=== PATIENT | male | born 1995 | race Native Hawaiian/Other Pacific Islander ===

== ENCOUNTER 2024-10-17 09:48 | Outpatient (REF) | payer SELFPAY ==
--- OUTSIDE RECORDS SUMMARY | 2024-10-17 09:45 | XMS_ITS | Encounter Summary ---
Author Organization [employer] Address [address] [place] [address] [place] [address] Care Team Providers Care Before And After School Daycare Worker Name Role Phone Unavailable Primary Care Provider Unavailabl e Reason for Visit * Reason Comments OBAT Encounter Details Date Type Department Care Team (Latest Contact Info) Description 10/17/2024 9:45 AM EDT Office Visit [facility] [address] [place], [place] [phone] Ame Weinberg MD [address] [place] [address] Opioid dependence, uncomplicated (CMS/HCC) (Primary Dx) Social History Tobacco Use Types Packs/Day Years Used Date Smoking Tobacco: Every Day Cigarettes Smokeless Tobacco: Never Alcohol Use Standard Drinks/Week Comments Not Currently 0 (1 standard drink = 0.6 oz pur e alcohol) Depression Answer Date Recorded Patient Health Questionnaire-9 Score 5 09/21/2024 Patient Health Questionnaire-9 Score 5 09/21/2024 Last PHQ-9: Questionnaire Data Not on file 0 09/21/2024 Housing Stability Answer Date Recorded What is your housing situation today? I have cristian rincon 09/18/[address] you li ve. Do you have problems with any of the following? None of the above 09/18/2024 Food Insecurity Answer Date Recorded Within the past 12 months, y ou worried that your food would run out before you got money to buy more: Never True 09/18/2024 Within the past 12 months,th e food you bought just didn't last and you didn't have enough money to get more: Never True 01/2025 Transportation Answer Date Recorded In the past 12 months, has l ack of transportation kept you from medical appts, meetings, work or from getting things needed for daily living? No 09/18/2024 Utilities Answer Date Recorded In the past 12 months, has t he electric, gas, oil or water company threatened to shut off services in your home? No 09/18/2024 Depression Answer Date Recorded Patient Health Questionnaire-2 Score 2 09/21/2024 Internet Access Answer Date Recorded Internet Access Q1 No 09/18/2024 Internet Access Q2 Not on file 09/18/2024 Sex and Gender Information Value Date Recorded Sex Assigned at Male 09/17/2024 11:11 AM EDT Legal Sex Male 10:45 AM EDT Gender Identity Male 09/17/2024 11:11 AM EDT Sexual Orientation Straight 09/17/2024 11 :11 AM EDT documented as of this encounter Progress Notes * Ame Weinberg MD - 10/17/2024 9:45 AM EDT Subjective Patient ID: Fredi Stone is a 28 y.o. male who presents for OBAT RV. HPI Patient on current buprenorphine (Sublocade) since 10/03/24. Previously on Suboxone dose of 24/6 mg.Patient has been in the program for 3 weeks. Provider intake: 09/18/24. LFTs: ordered 09/18/24. Patient actively enrolled in behavioral health services, therapist Sam, appointment 09/27/24. [facility] reviewed by provider. Last PCP appt: not assigned, requested. Smoking status 1/2-1 ppd 10/03/24 Buprenorphine (Sublocade) treatment history: Initial dose: 300 mg on 10/03/24 Last visit 10/10/24 Utox BUP only Fredi seen today for follow up for opioid use disorder. After initial pain from the injection, reports feeling very well on Sublocade with improved control of withdrawal symptoms and cravings. Reports the injection site is feeling fine now. Also seen at [facility] today. Still at [facility] program. Seeing therapist Sam 10/15/24. Still needs to do labs. Interim Hx: He attended OT on 10/10/24, and came to [facility] group on 10/12/24 and had integrated behavioral health service visit on 10/15/24. Today: 9/10/25 Utox: bup only Fredi did his lab before this appointment. Doing well. Pleased with buprenorphine (Sublocade). Wentto a movie yesterday. Talking with his mother everyday and with his 6-year-old daughter in [place]. He has a limited contact with his 3-year-old son in [place] due to his previous drug use, but his mother started allowing more time with his son as she sees him in recovery. He states he might goto the group after this appointment. Plan: Buprenorphine (Sublocade) dosing schedule of 300 mg q 28 days and management of side effects reviewed . Recovery support, harm reduction (including Narcan), and behavioral health attendance reviewed.Appointment for one week given. Patient expressed understanding and agreement with continuing plan of care. This information has been disclosed to you from records protected by federal confidentiality rules (42 CFR Part 2). The federal rules prohibit you from making any further disclosure of information inthis record that identifies a patient as having or having had a substance use disorder either directly, by reference to publicly available information, or through verification of such identification by another person unless further disclosure is expressly permitted by the written consent of the individual whose information is being disclosed or as otherwise permitted by (see2.3.1). The federal rules restrict any use of the information to investigate or prosecute with regard to a crime any patient with a substance use disorder, except as provided at 2.12??(5) and 2.65. Review of Systems Objective Physical Exam Office Visit on 10/17/2024 Component Date Value Ref Range Status THC 10/17/2024 Negative Negative Final Cocaine Screen, Urine 10/17/2024 Negative Negative Final Opiate Screen, Urine 10/17/2024 Negative Negative Final Methamphetamine Screen Urine 10/17/2024 Negative Negative Final Amphetamine Screen, Urine 10/17/2024 Negative Negative Final Benzodiazepines Screen, Urine 10/17/2024 Negative Negative Final Barbiturate Screen, Urine 10/17/2024 Negative Negative Final Methadone Screen, Urine 10/17/2024 Negative Negative Final Buprenophine Screen, Urine 10/17/2024 Positive (A) Negative Final TCA, Urine 10/17/2024 Negative Negative Final MDMA Urine 10/17/2024 Negative Negative ng/mL Final Oxycodone Screen, Urine 10/17/2024 Negative Negative Final Phencyclidine (PCP), Urine 10/17/2024 Negative Negative Final Fentanyl, Urine 10/17/2024 Negative Negative Final Assessment/Plan documented in this encounter Miscellaneous Notes * Assessment & Plan Note - Ame Weinberg MD - 10/17/2024 5:27 AM EDTAssociated Problem(s): Opioid dependence, uncomplicated (CMS/HCC) - stage of change: Action / Early remission - Utox review: neg opi - Overdose risk: high, decreased tolerance, mixed use, history of overdose - Continue current recovery support - Continue current recovery effort - Has been on buprenorphine / naloxone (Suboxone) 24/6 mg daily, transitioning to buprenorphine (Sublocade) today - Reviewed harm reduction and overdose prevention documented in this encounter Plan of Treatment Upcoming Encounters Date Type Department Care Team (Late st Contact Info) Description 10/24/2024 9:30 AM EDT Clinical Support [facility] [address] [place] [phone] Jez Beal, RN [address] [place] [address] documented as of this encounter Goals Goal Patient Goal Type Associated Problems Recent Progress Patient-Stated? Author Increase coping skills to promote long-term recovery and improve ability to perform daily activities General On track( 025 10:39 AM EDT) No Jez Beal, RN documented as of this encounter Procedures Procedure Name Priority Date/Time Associated Diagnosis Comments POCT MIKA-14 URINE DRUG SCREEN Routine 10/17/2024 10:18 AM EDT Opioid dependence, uncomplicated (CMS/HCC) documented in this encounter Results * (ABNORMAL) POCT MIKA-14 Urine Drug Screen (10/17/2024 10:18 AM EDT) THC Negative Negative Cocaine Screen, Urine Negative Negative Opiate Screen, Urine Negative Negative Methamphetamine Screen Urine Negative Negative Amphetamine Screen, Urine Negative Negative Benzodiazepines Screen, Urine Negative Negative Barbiturate Screen, Urine Negative Negative Methadone Screen, Urine Negative Negative Buprenophine Screen, Urine Positive(A) Negative TCA, Urine Negative Negative MDMA Urine Negative Negative ng/mL Oxycodone Screen, Urine Negative Negative Phencyclidine (PCP), Urine Negative Negative Fentanyl, Urine Negative Negative Urine Urine specimen obtained by clean catch procedure / Unknown 10/17/2024 10:18 AM EDT Ame Weinberg MD POINT OF CARE TEST ENTER/EDIT OR DERABLES Final Result documented in this encounter Visit Diagnoses Diagnosis Opioid dependence, uncomplicated (CMS/HCC)- Primary documented in this encounter Additional Health Concerns Assessment Noted Time PHQ-9 Depression Total Score: 5 09/22/19 25 3:06 PM EDT documented as of this encounter
--- OUTSIDE RECORDS SUMMARY | 2024-10-17 11:48 | XMS_ITS | Encounter Summary ---
Author Organization [employer] Address [address] [place] [address] 7 [place] [address] Care Team Providers Care Field Clinical Engineer Name Role Phone Unavailable Primary Care Provider Unavailabl e Encounter Details Date Type Department Care Team ([facility] st Contact Info) Description 09/26/2024 Orders Only [facility] [address] [place], [place] [phone] Ame Weinberg MD [address] [place], [place] [phone] Social History Tobacco Use Types Packs/Day Years [...] AM EDT documented as of this encounter Plan of Treatment Upcoming Encounters Date Type Department Care Team (Late st Contact Info) Description 10/24/2024 9:30 AM EDT Clinical Support [facility] [address] [place] [address] Jez Beal, RN [address] [place] [address] documented as of this encounter Goals Goal Patient Goal Type Associated Problems Recent Progress Patient-Stated? Author Increase coping skills to promote long-term recovery and improve ability to perform daily activities General On track( 025 10:39 AM EDT) No Jez Beal, RN documented as of this encounter Visit Diagnoses Not on filedocumented in this encounter Additional Health Concerns Assessment Noted Time PHQ-9 Depression Total Score: 5 09/22/19 25 3:06 PM EDT documented as of this encounter
--- OUTSIDE RECORDS SUMMARY | 2024-10-17 11:48 | XMS_ITS | Encounter Summary ---
Author Organization [employer] Address [address] [place] [address] 7 [place] [address] Care Team Providers Care Patient Svcs Mgr Name Role Phone Unavailable Primary Care Provider Unavailabl e Encounter Details Date Type Department Care Team (Latest Contact Info) Description 10/17/2024 Travel Social History Tobacco Use Types Packs/Day Years [...] Description 10/24/2024 9:30 AM EDT Clinical Support [facility] [address] [place] [address] Jez Beal, RN [address] [place] [address] documented as of this encounter Goals Goal [...]
--- OUTSIDE RECORDS SUMMARY | 2024-10-17 11:48 | XMS_ITS | Clinical Summary ---
Author Organization [employer] Address [address] [place] [address] 7 [place] [address] Care Team Providers Care Spool Cleaner Name Role Phone Unavailable Primary Care Provider Unavailabl e Allergies No known active allergies Medications * This document contains information received from the source organization and may not represent a complete record from that organization. naloxone (Narcan) 4 mg/0.1 mL nasal sprayIndications :Opioid dependence, uncomplicated (CMS/HCC) Administer 1 spray (4 mg) into affected nostril(s) if needed for opioid reversal. May repeat every 2-3 minutes if needed, alternating nostrils, until medical assistance becomes available. 2 each 025 2025 Active docusate sodium (Colace) 100 MG capsuleIndicatio ns:Opioid dependence, uncomplicated (CMS/HCC) Take 1 capsule (100 mg) by mouth if needed in the morning and at bedtime for constipation. 60 capsule 3 025 2025 Active senna (Senokot) 8.6 MG tablet Take 1 or 2 tablets by mouth at bedtime as needed for constipation 60 tablet 2 Active bisacodyl (Dulcolax) 5 MG EC tablet Take 1 tablet by mouth once a day if no bowel movement for 3 days. Do not crush, chew, or split. 30 tablet 2 Active buprenorphine ER (Sublocade) 300 mg/1.5mL injectionIndicat ions:Opioid dependence, uncomplicated (CMS/HCC) Inject 1.5 mL (1 each) under the skin every month to absorb continually. 1.5 mL 1 025 2024 Active mirtazapine (Remeron) 30 MG tablet Take 1 tablet (30 mg) by mouth at bedtime. 30 tablet 1 Active hydrOXYzine pamoate (Vistaril) 25 MG capsule Take 1 capsule by mouth a day as needed for anxiety or insomnia. May take additional 1 capsule a day. 60 capsule 1 Active Buprenorphine HCl-Naloxone HCl (Suboxone) 8-2 MG SL filmIndications: Opioid dependence, uncomplicated (CMS/HCC) Place 1 Film under the tongue 3 times daily for 9 days. 26 Film 025 2024 Discontinued(R eorder (will not trigger notification to Pharmacy)) Buprenorphine HCl-Naloxone HCl (Suboxone) 8-2 MG SL filmIndications: Opioid dependence, uncomplicated (CMS/HCC) Place 1 Film under the tongue 3 times daily for 7 days. 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 Rx sent. - resume hydroxyzine. Rx 25 mg, may take two if inadequate. - connected with integrated behavioral health service Anxiety 09/21/2024 Opioid dependence, uncomplicated 09/18/2024 Assessment & Plan (10/17/2024 5:27 AM EDT): - stage of change: Action / Early remission - Utox review: neg opi - Overdose risk: high, decreased tolerance, mixed use, history of overdose - Continue current recovery support - Continue current recovery effort - Has been on buprenorphine / naloxone (Suboxone) 24/6 mg daily, transitioning to buprenorphine (Sublocade) today - Reviewed harm reduction and overdose prevention Assessment & Plan (10/03/2024 11:57 AM EDT): - stage of change: Action / Early remission - Utox review: neg opi - Overdose risk: high, decreased tolerance, mixed use, history of overdose - Continue current recovery support - Continue current recovery effort - Has been on buprenorphine / naloxone (Suboxone) 24/6 mg daily, transitioning to buprenorphine (Sublocade) today - Reviewed harm reduction and overdose prevention Tobacco dependence 09/18/2024 Assessment & Plan (10/03/2024 11:53 AM EDT): - will discuss about smoking cessation option in near future Encounters * This document contains information received from the source organization and may not represent a complete record from that organization. Date Type Department Care Team Description 10/17/2024 9:45 AM EDT Office Visit [address] [address] Ame Weinberg MD Opioid dependence, uncomplicated ([facility]/HCC) (Primary Dx) 10/17/2024 Travel 10/15/2024 Patient Outreach [address] [address] Fritz Tucker Recovery Supports 10/12/2024 Patient Outreach [address] [address] Pranav De La Fuente Recovery Supports 10/10/2024 11:00 AM EDT Clinical Support [address] [address] Jez Beal RN Opioid dependence, uncomplicated ([facility]/HCC) (Primary Dx) 10/10/2024 9:00 AM EDT Office Visit [address] [address] Elias Garcia MD Opioid dependence, uncomplicated (CMS/HCC) (Primary Dx) 10/10/2024 Travel 10/05/2024 Patient Outreach [address] [address] Ermias Wilks Recovery Supports 10/03/2024 11:00 AM EDT Office Visit [address] [address] Ame Weinberg MD Opioid dependence, uncomplicated (CMS/HCC) (Primary Dx); Tobacco dependence; Anxiety; Mild episode of recurrent major depressive disorder (CMS/HCC) 10/03/2024 Travel 09/28/2024 Patient Outreach [address] [address] Ermias Wilks [facility] Supports 09/28/[address] [address] Roxann Mckeon RN 09/27/2024 1:00 PM EDT Clinical Support [address] [address] Jez Beal RN Opioid dependence, uncomplicated (CMS/HCC) (Primary Dx) 09/27/2024 Travel 09/26/2024 11:15 AM EDT Clinical Support [address] [address] Jez Beal RN Opioid dependence, uncomplicated (CMS/HCC) (Primary Dx) 09/26/[address] [address] Jez Beal RN Opioid dependence, uncomplicated (CMS/HCC) (Primary Dx) 09/26/[address] [address] Jez Beal, MARTHA New PCP appointment request 09/26/2024 Orders Only [address] [address] Ame Weinberg MD 09/26/2024 Patient Outreach [address] [address] Sunday Lopez [facility] Supp[facility] 09/26/2024 Travel 09/24/2024 Patient Outreach [address] [address] Fritz Tucker [facility] Recovery Supports 09/21/2024 Patient Outreach [address] [phone] Sunday Lopez [facility] Recovery Supports 09/19/2024 9:00 AM EDT Office Visit [address] [phone] Elias Garcia MD Opioid dependence, uncomplicated (CMS/HCC) (Primary Dx) 09/19/2024 Refill [facility] [address] [place] [address] Jez Beal RN Opioid dependence, uncomplicated (CMS/HCC) 09/19/2024 Travel 09/18/2024 1:30 PM EDT Office Visit [facility] [address] [place] [address] Cash Guillen MD Opioid dependence, uncomplicated (CMS/HCC) (Primary Dx); Tobacco dependence 09/18/2024 Patient Outreach [facility] [address] [place] [address] Leroy Low [facility] Recovery Supports 09/18/2024 Patient Outreach [facility] [address] [place] [address] Pranav De La Fuente Recovery Supports 09/18/2024 Refill [facility] [address] [place] [address] Roxann Mckeon RN Opioid dependence, uncomplicated ([facility]/HCC) (Primary Dx) 09/18/2024 Travel 09/17/2024 11:00 AM EDT Office Visit [facility] [address] [place] [address] Roxann Mckeon RN Uncomplicated opioid dependence (CMS/HCC) 09/17/2024 Patient Outreach [facility] [address] [place] [address] Fritz Tucker [facility] Recovery Supports 09/17/2024 Patient Outreach [facility] [address] [place] [address] Ermias Wilks [facility] Recovery Supports 09/17/2024 Travel from Last 3 Months Social History Tobacco Use Types Packs/Day Years [...] Orientation Straight 09/17/2024 11 :11 AM EDT Last Filed Vital Signs Vital Sign Reading Time Taken Comments Blood Pressure 108/70 09/18/2024 1:55 PM EDT Pulse 89 09/18/2024 1:55 PM EDT Temperature 36.9 C (98.4 F) 09/18/2024 1:55 PM EDT Respiratory Rate - - Oxygen Saturation 98% 09/18/2024 2:24 PM EDT Inhaled Oxygen Concentration - - Weight - - Height - - Body Mass Index - - Plan of Treatment Upcoming Encounters Date Type Department Care Team (Late st Contact Info) Description 10/24/2024 9:30 AM EDT Clinical Support [facility] [address] [place] [address] Jez Beal, RN [address] [place] [address] Health Maintenance Due Date Last Done Comments HIV Screening 1996 Lipid Panel 1996 Disability Screening 1996 Family Planning (PISQ) 11/10/2011 HPV Vaccines (1 - Male 3-dos e series) 11/10/2011 Hepatitis C Screening 2014 DTaP/Tdap/Td Vaccines (1 - Tdap) 11/10/2015 Hepatitis B Vaccines (1 of 3 - 19+ 3-dose series) 11/10/2015 Pneumococcal Vaccine: Pediatrics (0 to 5 Years) and At-Risk Patients (6 to 49) Years (1 of 2 - PCV) 11/10/2015 COVID-19 Vaccine (1 - 2023-2 5 season) 2024 Influenza Vaccine (#1) 2024 Alcohol/Substance Use Screening 09/18/2025 09/18/2024 SDOH Screening 09/18/2025 09/18/2024 Depression Screening 09/21/2025 09/21/2024, 09/21/2024 Tobacco Screening 10/17/2025 10/17/2024 Zoster Vaccines (1 of 2) 2046 RSV Patients and Patients Aged 60 years or older (1 - 1-dose 75+ series) 11/10/2071 HIB Vaccines Aged Out No longer eligi ble based on patient's age to complete this topic Hepatitis A Vaccines Aged Out No long er eligible based on patient's age to complete this topic IPV Vaccines Aged Out No longer eligi ble based on patient's age to complete this topic Meningococcal B Vaccine Aged Out No l onger eligible based on patient's age to complete this topic Meningococcal Vaccine Aged Out No bernice alex eligible based on patient's age to complete this topic RSV under 20 months Aged Out No longe r eligible based on patient's age to complete this topic Rotavirus Vaccines Aged Out No longer eligible based on patient's age to complete this topic Goals Goal Patient Goal Type Associated Problems Recent Progress Patient-Stated? Author Increase coping skills to promote long-term recovery and improve ability to perform daily activities General On track( 025 10:39 AM EDT) No Jez Beal, cashier clerk Procedure Name Priority Date/Time Associated Diagnosis Comments POCT MIKA-14 URINE DRUG SCREEN Routine 10/17/2024 10:18 AM EDT Opioid dependence, uncomplicated (CMS/HCC) POCT MIKA-14 URINE DRUG SCREEN Routine 10/10/2024 11:23 AM EDT Opioid dependence, uncomplicated (CMS/HCC) POCT MIKA-14 URINE DRUG SCREEN Routine 10/03/2024 11:41 AM EDT Opioid dependence, uncomplicated (CMS/HCC) POCT MIKA-14 URINE DRUG SCREEN Routine 09/27/2024 2:33 PM EDT Opioid dependence, uncomplicated (CMS/HCC) POCT MIKA-14 URINE DRUG SCREEN Routine 09/26/2024 11:45 AM EDT Opioid dependence, uncomplicated (CMS/HCC) POCT MIKA-14 URINE DRUG SCREEN Routine 09/18/2024 2:09 PM EDT Opioid dependence, uncomplicated (CMS/HCC) from Last 3 Months Results * (ABNORMAL) POCT MIKA-14 Urine Drug Screen (10/17/2024 10:18 AM EDT) Only the most recent of6 resultswithin the time period is included. THC Negative Negative Cocaine Screen, Urine Negative [...] CARE TEST ENTER/EDIT OR DERABLES Final Result from Last 3 Months Insurance [employer] HSN FULL
--- OUTSIDE RECORDS SUMMARY | 2024-10-17 11:48 | XMS_ITS | Encounter Summary ---
Author Organization [employer] Address [address] [place] [address] 7 [place] [address] Care Team Providers Care Technical Sales Associate Name Role Phone Unavailable Primary Care Provider Unavailabl e Reason for Visit * Reason Comments [facility] Recovery Supports Encounter Details Date Type Department Care Team ([facility] st Contact Info) Description 10/15/2024 Patient Outreach [facility] [address] [place] [address] Fritz Tucker Recovery Supports Social History Tobacco Use Types Packs/Day Years [...] as of this encounter Progress Notes * Fritz Tucker - 10/15/2024 3:09 PM EDT I met with Fredi today. Setting: in person at [facility] Recovery Wellness Goals worked on: Social Stability Action taken/next steps: Attended alcohol and drug free activity Additional comments: Fritz Tucker documented in this encounter Plan of Treatment Upcoming Encounters Date Type Department Care Team (Late st Contact Info) Description 10/24/2024 9:30 AM EDT Clinical Support [facility] [address] [place] [address] Jez Beal, RN [address] [place] [phone] documented as of this encounter Goals Goal [...]
--- OUTSIDE RECORDS SUMMARY | 2024-10-17 11:48 | XMS_ITS | Encounter Summary ---
Author Organization [employer] Address [address] [place] [address] 7 [place] [address] Care Team Providers Care Internal Recruiter Name Role Phone Unavailable Primary Care Provider Unavailabl e Reason for Visit * Reason Comments [facility] Recovery Supports Encounter Details Date Type Department Care Team ([facility] st Contact Info) Description 10/12/2024 Patient Outreach [facility] [address] [place] [address] Pranav De La Fuente Recovery Supports Social History Tobacco Use Types [...] as of this encounter Progress Notes * Pranav De La Fuente - 10/12/2024 2:07 PM EDT I met with Fredi today. Setting: in person at [facility] Recovery Wellness Goals worked on: Social Stability Action taken/next steps: Attended alcohol and drug free activity Additional comments: Pranav De La Fuente documented in this encounter Plan of Treatment Upcoming Encounters Date Type Department Care Team (Late st Contact Info) Description 10/24/2024 9:30 AM EDT Clinical Support [facility] [address] [place] [phone] Jez Beal, RN [address] [place] [phone] documented as of this encounter Goals Goal [...]
[2024-10-17 12:53] LABS: Alanine Aminotransferase 89 U/L (0-40); Albumin Level 4.4 g/dL (3.5-5.0); Alkaline Phosphatase 78 U/L (39-117); Aspartate Amino Transferase 34 U/L (5-37); Total Protein 7.8 g/dL (6.5-8.0)
[2024-10-17 13:20] LABS: HBS Num1 0.66 mIU/mL (0-7.99); HBc Num1 0.10 S/CO (0.00-0.79); HBsAGNum1 0.47 S/CO (0.00-0.99); HIV Num 1 0.06 S/CO (0.00-0.99); Hepatitis B Surface Antigen Negative (Negative); ~HepC Num1 12.99 S/CO (0.00-0.79); ~Hepatitis B Surface Antibody NONREACTIVE (Nonreactive); ~Hepatitis C Antibody Reactive (Nonreactive)
[2024-10-19 08:17] LABS: ~Hepatitis A Antibody IgG 9.89 S/CO (0.00-0.99)
[2024-10-20 03:48] LABS: TS Negative Control Passed; TS Panel A 0; TS Panel B 0; TS Positive Control Passed; TSpotTB Negative (Negative)
[2024-10-21 15:08] LABS: HCV Log PCR 2.46 Log IU/mL (NOT DETECTED); HepC Viral Load 288 IU/mL (NOT DETECTED)
== END 2024-10-17 09:49 | disposition home or self-care (01) ==
LOC: HO.HHCL 09:48
PROVIDERS: PCP Family Medicine; Visit Provider Emergency Medicine
DX: Z11.3 Encounter for screening for infections with a predominantly sexual mode of transmission (principal); Z11.4 Encounter for screening for human immunodeficiency virus [HIV]; Z11.59 Encounter for screening for other viral diseases; Z11.1 Encounter for screening for respiratory tuberculosis; F11.20 Opioid dependence, uncomplicated
CPT/HCPCS: 36415; 80076; 86481; 86592; 86704; 86706; 86708; 86803; 87340; 87389; 87522

== ENCOUNTER 2024-10-26 11:25 | Outpatient (REF) | payer MEDICAID, SELFPAY ==
--- OUTSIDE RECORDS SUMMARY | 2024-10-26 11:30 | XMS_ITS | Encounter Summary ---
Author Organization [employer] Address [address] [place] [address] 7 [place] [address] Care Team Providers Care Apartment Maintenance Name Role Phone Unavailable Primary Care Provider Unavailabl e Reason for Visit * Reason Comments OBAT Hepatitis C Encounter Details Date Type Department Care Team (Latest Contact Info) Description 10/26/2024 11:30 AM EDT Clinical Support [facility] [address] [place] [address] Jez Beal, RN [address] [place] [address] Opioid dependence, uncomplicated (CMS/HCC); Encounter for immunization Social History Tobacco Use Types Packs/Day Years [...] as of this encounter Progress Notes * Jez Beal RN - 10/26/2024 11:30 AM EDT Fredi Stnoe is a 28 y.o. male who presents for OBAT RV. Patient on current buprenorphine (Sublocade) since 10/03/24. Previously on Suboxone dose of 24/6 mg.Patient has been in the program for 4 weeks. Provider intake: 09/18/24. LFTs: done 10/17/24. Patient actively enrolled in behavioral health services, therapist Sam, appointment 09/27/24. [facility] reviewed by provider. PCP: [facility] appointment with UZMA Ramirez 11/21/24. Smoking status 1/2-1 ppd 10/03/24. Buprenorphine (Sublocade) treatment history: Initial dose: 300 mg on 10/03/24 Hep B: not immune 10/17/24. Received first Heplisav-B 10/26/24. Due for dose #2 on or after 11/23/24. Hepatitis C: Hep C ab positive, HCV RNA 288 on 10/17/24 Discussed treatment process and pt and to go to lab 10/26/24 Reports he was treated by his aunt, who is a doctor, [place] ago but does not remember the name of the medication. He will ask her. Last visit 10/17/24 Utox: bup only Fredi did his lab before this appointment. Doing well. Pleased with buprenorphine (Sublocade). Wentto a movie yesterday. Talking with his mother everyday and with [place] 6-year-old daughter in [place]. He has a limited contact with his 3-year-old son in [place] due to his previous drug use, but his mother started allowing more time with his son as she sees him in recovery. He states he might goto the group after this appointment. Today 10/26/24 Utox not collected today Fredi seen today for follow up for opioid use disorder. Reports doing well, still living in [facility]. Due for Sublocade next week and is feeling fine with no cravings or withdrawal symptoms. Discussed lab work as above, given Heplisav-B #1 and discussed Hep C viral load, treatment options, and pt to go to lab today. Plan: Buprenorphine (Sublocade) dosing schedule of 300 [...] except as provided at 2.12??(5) and 2.65. documented in this encounter Plan of Treatment Upcoming Encounters Date Type Department Care Team (Late st Contact Info) Description 10/31/2024 11:00 AM EDT Office Visit [facility] [address] [place], [place] [phone] Ame Weinberg MD [address] [place], [place] [phone] 11/07/2024 11:00 AM EDT Clinical Support [address] [address] Jez Beal, RN [address] [place] [address] 11/21/2024 9:00 AM EDT Office Visit [address] [address] Tamra Donovan FNP [address] [place] [address] documented as of this encounter Goals Goal Patient Goal Type Associated Problems Recent Progress Patient-Stated? Author Increase coping skills to promote long-term recovery and improve ability to perform daily activities General On track( 025 11:35 AM EDT) No Jez Beal, RN documented as of this encounter Visit Diagnoses Diagnosis Opioid dependence, uncomplicated ([facility]) Encounter for immunization documented in this encounter Additional Health Concerns Assessment Noted Time PHQ-9 Depression Total Score: 5 09/22/19 25 3:06 PM EDT documented as of this encounter
--- OUTSIDE RECORDS SUMMARY | 2024-10-26 12:03 | XMS_ITS | Encounter Summary ---
Author Organization [employer] Address [address] [facility] 7 [place] [address] Care Team Providers Care Wrapper Off Name Role Phone Unavailable Primary Care Provider Unavailabl e Encounter Details Date Type Department Care Team (Late st Contact Info) Description 10/19/2024 Results Follow-Up [facility] [address] [place] [address] Ame Weinberg MD [address] [place] [address] Hepatic Function Panel, Hepatitis A Antibody, Total, Hepatitis B Core Antibody, Total, Additional followed-up results: 5 Social History Tobacco Use Types Packs/Day Years [...] Description 10/31/2024 11:00 AM EDT Office Visit [address] [address] Ame Weinberg MD [address] [place] [phone] 11/07/2024 11:00 AM EDT Clinical Support [address] [address] Jez Beal, MARTHA [address] [place] [phone] 11/21/2024 9:00 AM EDT Office Visit [address] [address] Tamra Donovan FNP [address] [place] [phone] documented as of this encounter Goals Goal [...]
--- OUTSIDE RECORDS SUMMARY | 2024-10-26 12:03 | XMS_ITS | Clinical Summary ---
Author Organization [employer] Address [address] [place] [address] 7 [place] [address] Care Team Providers Care Finish Inspector Name Role Phone Unavailable Primary Care Provider Unavailabl e Allergies No known active allergies Medications * This document contains information received from the source organization and may not represent a complete record from that organization. naloxone (Narcan) 4 mg/0.1 mL nasal sprayIndications: Opioid dependence, uncomplicated (CMS/HCC) Administer 1 spray (4 mg) into affected nostril(s) if needed for opioid reversal. May repeat every 2-3 minutes if needed, alternating nostrils, until medical assistance becomes available. 2 each 09/19/19 25 026 Active docusate sodium (Colace) 100 MG capsuleIndication s:Opioid dependence, uncomplicated (CMS/HCC) Take 1 capsule (100 mg) by mouth if needed in the morning and at bedtime for constipation. 60 capsule 3 09/19/19 25 026 Active senna (Senokot) 8.6 MG tablet Take 1 or 2 tablets by mouth at bedtime as needed for constipation 60 tablet 2 09/27/19 25 Active bisacodyl (Dulcolax) 5 MG EC tablet Take 1 tablet by mouth once a day if no bowel movement for 3 days. Do not crush, chew, or split. 30 tablet 2 09/27/19 25 Active buprenorphine ER (Sublocade) 300 mg/1.5mL injectionIndicati ons:Opioid dependence, uncomplicated (CMS/HCC) Inject 1.5 mL (1 each) under the skin every month to absorb continually. 1.5 mL 1 09/27/19 25 025 Active mirtazapine (Remeron) 30 MG tablet Take 1 tablet (30 mg) by mouth at bedtime. 30 tablet 1 10/04/19 25 Active hydrOXYzine pamoate (Vistaril) 25 MG capsule Take 1 capsule by mouth a day as needed for anxiety or insomnia. May take additional 1 capsule a day. 60 capsule 1 10/04/19 25 Active Buprenorphine HCl-Naloxone HCl (Suboxone) 8-2 MG SL filmIndications:O pioid dependence, uncomplicated (CMS/HCC) Place 1 Film under the tongue 3 times daily for 7 days. 21 Film 09/20/19 25 025 Hospital, Clinic, or Other Facility Administered Medication [...] hydroxyzine 50 mg (?) while in the assisted - resume mirtazapine. Rx sent. - resume [...] organization. Date Type Department Care Team Description 10/26/2024 11:30 AM EDT Clinical Support [facility] [place] [address] Jez Beal RN Opioid dependence, uncomplicated (CMS/HCC); Encounter for immunization 10/26/2024 Travel 10/23/2024 Telephone [facility] [place] [address] Debra Demarco RN Hep C/OBAT 10/23/2024 Orders Only [address] [address] Debra Demarco RN Chronic hepatitis C without hepatic coma (CMS/HCC) 10/22/2024 Patient Outreach [facility] [place] [address] Fritz Tucker Recovery Supports 10/22/2024 Patient Outreach [address] [address] Ermias Wilks Recovery Supports 10/21/2024 Results Follow-Up [address] [address] Ame Weinberg MD Hepatitis C Viral RNA, Quantitative, Real-Time PCR 10/19/2024 Results Follow-Up [address] [address] Ame Weinberg MD Hepatic Function Panel, Hepatitis A Antibody, Total, Hepatitis B Core Antibody, Total, Additional followed-up results: 5 10/17/2024 9:45 AM EDT Office Visit [facility] [place] [address] Ame Weinberg MD Opioid dependence, uncomplicated (CMS/HCC) (Primary Dx) 10/17/2024 Travel 10/15/2024 Patient Outreach [address] [address] Fritz Tucker Recovery Supports 10/12/2024 Patient Outreach [address] [address] De La FuentePranav Recovery Supports 10/10/2024 11:00 AM EDT Clinical Support [address] [address] Jez Beal RN Opioid dependence, uncomplicated (CMS/HCC) (Primary Dx) 10/10/2024 9:00 AM EDT Office Visit [address] [address] Elias Garcia MD Opioid dependence, uncomplicated (CMS/HCC) (Primary Dx) 10/10/2024 Travel 10/05/2024 Patient Outreach [address] [address] Ermias Wilks Recovery Supports 10/03/2024 11:00 AM EDT Office Visit [address] [address] Ame Weinberg MD Opioid dependence, uncomplicated (CMS/HCC) (Primary Dx); Tobacco dependence; Anxiety; Mild episode of recurrent major depressive disorder (CMS/HCC) 10/03/2024 Travel 09/28/2024 Patient Outreach [address] [address] Ermias Wilks Recovery Supports 09/28/[address] [address] Roxann Mckeon RN 09/27/2024 1:00 PM EDT Clinical Support [address] [address] Jez Beal RN Opioid dependence, uncomplicated (CMS/HCC) (Primary Dx) 09/27/2024 Travel 09/26/2024 11:15 AM EDT Clinical Support [address] [address] Jez Beal, MARTHA Opioid dependence, uncomplicated (CMS/HCC) (Primary Dx) 09/26/[address] [address] Jez Beal, MARTHA Opioid dependence, uncomplicated (CMS/HCC) (Primary Dx) 09/26/2024 Telephone [facility] [address] [place] [address] Jez Beal, RN New PCP appointment request 09/26/2024 Orders Only [facility] [address] [place] [address] Ame Weinberg MD 09/26/2024 Patient Outreach [facility] [address] [place] [address] Sunday Lopez RC Recovery Supports 09/26/2024 Travel 09/24/2024 Patient Outreach [facility] [address] [place] [address] Fritz Tucker RC Recovery Supports 09/21/2024 Patient Outreach [facility] [address] [place] [address] Sunday Lopez RC Recovery Supports 09/19/2024 9:00 AM EDT Office Visit [facility] [address] [place] [address] Elias Garcia MD Opioid dependence, uncomplicated (CMS/HCC) (Primary Dx) 09/19/2024 Refill [facility] [address] [place] [address] Jez Beal RN Opioid dependence, uncomplicated (CMS/HCC) 09/19/2024 Travel 09/18/2024 1:30 PM EDT Office Visit [address] [address] Cash Guillen MD Opioid dependence, uncomplicated (CMS/HCC) (Primary Dx); Tobacco dependence 09/18/2024 Patient Outreach [facility] [address] [place] [address] Leroy Low RC Recovery Supports 09/18/2024 Patient Outreach [facility] [address] [place] [address] Pranav De La Fuente RC Recovery Supports 09/18/2024 Refill [facility] [address] [place] [address] Roxann Mckeon RN Opioid dependence, uncomplicated (CMS/HCC) (Primary Dx) 09/18/2024 Travel 09/17/2024 11:00 AM EDT Office Visit [facility] [address] [place] [address] Roxann Mckeon RN Uncomplicated opioid dependence (CMS/HCC) 09/17/2024 Patient Outreach [facility] [address] [place] [address] Fritz Tucker Recovery Supports 09/17/2024 Patient Outreach [facility] [address] [place] [address] Ermias Wilks Recovery Supports 09/17/2024 Travel from Last 3 Months Immunizations Immunization Administration Dates Next Due HepB-CpG 10/26/2024 11/23/2024 Social History Tobacco Use Types Packs/Day Years [...] Description 10/31/2024 11:00 AM EDT Office Visit [address] [address] Ame Weinberg MD [address] [place] [address] 11/07/2024 11:00 AM EDT Clinical Support [address] [address] Jez Beal, RN [address] [place] [address] 11/21/2024 9:00 AM EDT Office Visit [address] [address] Tamra Donovan FNP [address] [place] [address] Health Maintenance Due Date Last Done Comments Lipid Panel 1996 Disability Screening 1996 Family Planning (PISQ) 11/10/2011 HPV Vaccines (1 - Male 3-dos e series) 11/10/2011 DTaP/Tdap/Td Vaccines (1 - Tdap) 11/10/2015 Hepatitis A Vaccines (1 of 2 - Risk 2-dose series) 11/10/2015 Pneumococcal Vaccine: Pediatrics (0 to 5 Years) and At-Risk Patients (6 to 49) Years (1 of 2 - PCV) 11/10/2015 COVID-19 Vaccine (1 - 2023-2 5 season) 2024 Influenza Vaccine (#1) 2024 Hepatitis B Vaccines (2 of 2 - CpG 2-dose series) 11/23/2024 10/26/2024 Alcohol/Substance Use Screening 09/18/2025 09/18/2024 SDOH Screening 09/18/2025 09/18/2024 Depression Screening 09/21/2025 09/21/2024, 09/21/2024 Tobacco Screening 10/17/2025 10/17/2024 Zoster Vaccines (1 of 2) 2046 RSV Patients and Patients Aged 60 years or older (1 - 1-dose 75+ series) 11/10/2071 HIV Screening Completed 10/17/2024 HIB Vaccines Aged Out No longer eligi [...] 025 11:35 AM EDT) No Jez Beal, machine feller Procedure Name Priority Date/Time Associated Diagnosis Comments POCT MIKA-14 URINE DRUG SCREEN Routine 10/17/2024 10:18 AM EDT Opioid dependence, uncomplicated (CMS/HCC) HEPATITIS C VIRAL RNA, QUANTITATIVE, REAL-TIME PCR Routine 10/17/2024 9:54 AM EDT T-SPOT(R).TB Routine 10/17/2024 9:54 AM EDT Opioid dependence, uncomplicated (CMS/HCC) RPR (MONITOR) W/REFL TITER Routine 10/17/2024 9:54 AM EDT Opioid dependence, uncomplicated (CMS/HCC) HIV 1/2 ANTIGEN/ANTIBODY, FOURTH GENERATION W/RFL Routine 10/17/2024 9:54 AM EDT Opioid dependence, uncomplicated (CMS/HCC) HEPATITIS C AB W/REFL TO HCV RNA, QN, PCR Routine 10/17/2024 9:54 AM EDT Opioid dependence, uncomplicated (CMS/HCC) HEPATITIS B SURFACE ANTIGEN, EIA Routine 10/17/2024 9:54 AM EDT Opioid dependence, uncomplicated (CMS/HCC) HEPATITIS B SURFACE ANTIBODY, QUALITATIVE Routine 10/17/2024 9:54 AM EDT Opioid dependence, uncomplicated (CMS/HCC) HEPATITIS B CORE AB TOTAL Routine 10/17/2024 9:54 AM EDT Opioid dependence, uncomplicated (CMS/HCC) HEPATITIS A ANTIBODY, TOTAL Routine 10/17/2024 9:54 AM EDT Opioid dependence, uncomplicated (CMS/HCC) HEPATIC FUNCTION PANEL Routine 10/17/2024 9:54 AM EDT Opioid dependence, uncomplicated (CMS/HCC) POCT [...] CARE TEST ENTER/EDIT OR DERABLES Final Result * T-SPOT??.TB (10/17/2024 9:54 AM EDT) T Spot TB Negative Negative [facility] Comment:A negative test resu lt does not exclude the possibilityof exposure to or infection with Mycobacteriumtuberculosis (M. tuberculosis). Patients with recentexposure to TB infected individuals exhibiting anegative T-SPOT.TB result should be considered forretesting within 6 weeks or if other relevant clinicalsymptoms indicate. Results from T-SPOT.TB testing mustbe used in conjunction with each individual'sepidemiological history, current medical status,and results of other diagnostic evaluations.The T-SPOT.TB test is qualitative and results arereported as positive, borderline, or negative, giventhat the test controls perform as expected. In linewith the Centers for Disease Control and Prevention's2010 recommendation to report quantitative measurementsalongside the qualitative result, the laboratoryprovides spot counts for informational purposes only.The T-SPOT.TB test should not be interpreted as aquantitative test. TS PANEL A 0 [facility] TS PANEL B 0 [facility] Negative Control Passed [facility] Positive Control Passed [facility] Comment:For additional infor mation, please refer tohttp://tic.Next Health/faq/VXH832(This link is being provided for informational/educational purposes only.)THIS TEST WAS PERFORMED AT:[facility] [place] [phone] WILLAMS MD,PHD 10/17/2024 9:54 AM EDT 10/17/2024 12:01 PM EDT us Cash Guillen MD LAB BLOOD ORDERABLES Final Resul t Performing Organization Address [facility]/ZIP Co de Phone Number [facility] [address] [place] [phone] * (ABNORMAL) Hepatitis C Viral RNA, Quantitative, Real-Time PCR (10/17/2024 9:54 AM EDT) Hepatitis C Viral Load 288(A) NOT DETECTED IU/mL [facility] HCV Log PCR 2.46(A) NOT DETECTED Log IU/mL [facility] Comment:For additional infor mation, please refer tohttp://Fair value/faq/ISR77v8(This link is being provided for informational/educational purposes only.)THIS TEST WAS PERFORMED AT:[facility] [address] [id number] GROVER MD 10/17/2024 9:54 AM EDT 10/18/2024 10:44 AM EDT us Cash Guillen MD LAB BLOOD ORDERABLES Final Resul t Performing Organization Address [facility]/ZIP Co de Phone Number [facility] [address] [place] [phone] * (ABNORMAL) Hepatitis C Antibody with Reflex to HCV, RNA, Quantitative, Real- Time PCR (10/17/2024 9:54 AM EDT) Hepatitis C Antibody Reactive( A) Nonreactive [facility] Comment:Presumptive evidence of antibodies to HCV. Blood Venous blood specimen / Unknown 10/17/2024 9:54 AM EDT 10/17/2024 12:26 PM EDT us Cash Guillen MD LAB BLOOD ORDERABLES Final Resul t Performing Organization Address [facility] Co de Phone Number [facility] [address] [place] [phone] * Hepatitis A Antibody, Total (10/17/2024 9:54 AM EDT) Hepatitis A Antibody IgG REACTIVE Nonreactive [facility] Comment:The presence of IgG anti-HAV implies past HAV infection(recent or distant) or vaccination against HAV. Blood Venous blood specimen / Unknown 10/17/2024 9:54 AM EDT 10/17/2024 12:26 PM EDT us Cash Guillen MD LAB BLOOD ORDERABLES Final Resul t Performing Organization Address [facility] Co de Phone Number [facility] [address] [place] [phone] * Hepatitis B surface antigen, EIA (10/17/2024 9:54 AM EDT) Hepatitis B Surface Ag Negative Negative [facility] Blood Venous blood specimen / Unknown 10/17/2024 9:54 AM EDT 10/17/2024 12:26 PM EDT us Cash Guillen MD LAB BLOOD ORDERABLES Final Resul t Performing Organization Address [facility] Co de Phone Number [facility] [address] [place] [phone] * Hepatitis B Core Antibody, Total (10/17/2024 9:54 AM EDT) Hepatitis B Core Antibody Nonreactive Nonreactive [facility] Blood Venous blood specimen / Unknown 10/17/2024 9:54 AM EDT 10/17/2024 12:26 PM EDT us Cash Guillen MD LAB BLOOD ORDERABLES Final Resul t Performing Organization Address [facility]/ZIP Co de Phone Number [facility] [address] [place] [phone] * RPR (Monitor) with Reflex to??Titer (10/17/2024 9:54 AM EDT) RPR (Monitor) w/Refl Titer NON-REACTI VE NON-REACT DANTE [facility] Comment:THIS TEST WAS PERFOR MED AT:[facility] [facility] [place] [phone] GROVER MD Rapid Plasma Reagin Ab Titer TNP [facility] Blood Venous blood specimen / Unknown 10/17/2024 9:54 AM EDT 10/17/2024 11:57 AM EDT us Cash Guillen MD LAB BLOOD ORDERABLES Final Resul t Performing Organization Address [facility] Co de Phone Number [facility] [address] [place] [phone] * HIV-1/2 Antigen and Antibodies, Fourth Generation, with Reflexes (10/17/2024 9:54 AM EDT) HIV AB/AG Nonreactive Nonreactive [facility] Comment:HIV-1 p24 Ag and/or HIV-1/HIV-2 Ab not detected.A test result that is nonreactive does not exclude thepossibility of exposure to or infection with HIV-1 and/orHIV-2. Nonreactive results in this assay for individualswith prior exposure to HIV-1 and/or HIV-2 may be due toantigen and antibody levels that are below the limit ofdetection of this assay.The [employer] HIV Ag/Ab Combo assay result andsupplemental assay results should be interpreted inconjunction with the patient's clinical presentation,history and other laboratory results. If the results areinconsistent with clinical evidence, additional testing issuggested to confirm the result. Blood Venous blood specimen / Unknown 10/17/2024 9:54 AM EDT 10/17/2024 12:26 PM EDT us Cash Guillen MD LAB BLOOD ORDERABLES Final Resul t Performing Organization Address [facility] de Phone Number [facility] [address] [place] [phone] * Hepatitis B Surface Antibody, Qualitative (10/17/2024 9:54 AM EDT) Pathologist [facility] ~Hepatitis B Surface Antibody NONREACTIVE Nonreactive [facility] Comment:Nonreactive: < 8.00 mIU/mL Blood Venous blood specimen / Unknown 10/17/2024 9:54 AM EDT 10/17/2024 12:26 PM EDT us Cash Guillen MD LAB BLOOD ORDERABLES Final Resul t Performing Organization Address [facility] de Phone Number [facility] [address] [place] [phone] * (ABNORMAL) Hepatic Function Panel (10/17/2024 9:54 AM EDT) Pathologist [facility] Bilirubin, Total 0.3 0.0 - 1.0 mg/dL [facility] Bilirubin, Direct 0.1 0.0 - 0.5 mg/dL [facility] Aspartate Amino Transferase 34 5 - 37 U/L [facility] Alanine Aminotransferase 89(H) 0 - 40 U/L [facility] Total Protein 7.8 6.5 - 8.0 g/dL [facility] Albumin Level 4.4 3.5 - 5.0 g/dL [facility] Alkaline Phosphatase 78 39 - 117 U/L [facility] Blood Venous blood specimen / Unknown 10/17/2024 9:54 AM EDT 10/17/2024 12:26 PM EDT us Cash Guillen MD LAB BLOOD ORDERABLES Final Resul t [facility] [address] [place] [phone] from Last 3 Months [facility] FULL
--- OUTSIDE RECORDS SUMMARY | 2024-10-26 12:04 | XMS_ITS | Encounter Summary ---
Author Organization [employer] Address [address] [facility] 7 [place] [address] Care Team Providers Care Explosive Operator Fuse Name Role Phone Unavailable Primary Care Provider Unavailabl e Reason for Visit * Reason Comments [facility] Recovery Supports Encounter Details Date Type Department Care Team (Late st Contact Info) Description 10/22/2024 Patient Outreach [facility] [address] [place] [address] Ermias Wilks Recovery Supports Social History Tobacco Use Types [...] is your housing situation today? I have cristiandana rincon 09/18/[address] you [...] as of this encounter Progress Notes * Ermias Wilks - 10/22/2024 3:26 PM EDT I met with Fredi today. Setting: in person at [facility] Recovery Wellness Goals worked on: Physical Health/Mental Health Social Stability Spiritual Wellness Action taken/next steps: Attended recovery support group Contingency management Additional comments: Ermias Wilks documented in this encounter Plan of Treatment Upcoming Encounters Date Type Department Care Team (Late st Contact Info) Description 10/31/2024 11:00 AM EDT Office Visit [address] [address] Ame Weinberg MD [address] [place] [address] 11/07/2024 11:00 AM EDT Clinical Support [address] [address] Jez Beal, RN [address] [place] [phone] 11/21/2024 9:00 AM EDT Office Visit [address] [address] Tamra Donovan FNP [address] [place] [address] documented as of this encounter Goals Goal [...]
--- OUTSIDE RECORDS SUMMARY | 2024-10-26 12:04 | XMS_ITS | Encounter Summary ---
Author Organization [employer] Address [address] [facility] 7 [place] [address] Care Team Providers Care Outreach Educator Name Role Phone Unavailable Primary Care Provider Unavailabl e Encounter Details Date Type Department Care Team (Late st Contact Info) Description 09/26/2024 Orders Only [facility] [address] [place] [address] Ame Weinberg MD [address] [place] [address] Social History Tobacco Use Types Packs/Day Years [...] t he electric, gas, oil or water [employer] threatened to shut off services in your [...] Description 10/31/2024 11:00 AM EDT Office Visit [address] [address] Ame Weinberg MD [address] [place] [address] 11/07/2024 11:00 AM EDT Clinical Support [address] [address] Jez Beal, MARTHA [address] [place] [address] 11/21/2024 9:00 AM EDT Office Visit [address] [address] Tamra Donoavn FNP [address] [place] [phone] documented as of this encounter Goals Goal Patient Goal Type Associated Problems Recent Progress Patient-Stated? Author Increase coping skills to promote long-term recovery and improve ability to perform daily activities General On track( 025 11:35 AM EDT) No Jez Beal, RN documented as of this encounter Procedures Procedure Name Priority Date/Time Associated Diagnosis Comments HEPATITIS C VIRAL RNA, QUANTITATIVE, REAL-TIME PCR Routine 10/17/2024 9:54 AM EDT documented in this encounter Results * (ABNORMAL) Hepatitis C Viral RNA, Quantitative, Real-Time PCR (10/17/2024 9:54 AM EDT) Hepatitis C Viral Load 288(A) NOT DETECTED IU/mL [facility] HCV Log PCR 2.46(A) NOT DETECTED Log IU/mL [facility] Comment:For additional infor husam, please refer tohttp://education.Hashable/faq/XBK67t9(This link is being provided for informational/educational purposes only.)THIS TEST WAS PERFORMED AT:[facility] [place] [phone] GROVER MD 10/17/2024 9:54 AM EDT 10/18/2024 10:44 AM EDT us Cash Guillen MD LAB BLOOD ORDERABLES Final Resul t [facility] [address] [place] [phone] documented in this encounter Visit Diagnoses Not on filedocumented in this encounter Additional Health Concerns Assessment Noted Time PHQ-9 Depression Total Score: 5 09/22/19 25 3:06 PM EDT documented as of this encounter
--- OUTSIDE RECORDS SUMMARY | 2024-10-26 12:04 | XMS_ITS | Encounter Summary ---
Author Organization [employer] Address [address] [facility] 7 [place] [address] Care Team Providers Care Assistant Education Director Name Role Phone Unavailable Primary Care Provider Unavailabl e Encounter Details Date Type Department Care Team (Late st Contact Info) Description 10/23/2024 Orders Only [facility] [address] [place] [address] Debra Demarco, RN [address] [place] [address] Chronic hepatitis C without hepatic coma (CMS/HCC) Social History Tobacco Use Types Packs/Day Years [...] Description 10/31/2024 11:00 AM EDT Office Visit [address] [address] Ame Weinberg MD [address] [place] [address] 11/07/2024 11:00 AM EDT Clinical Support [address] [address] Jez Beal, MARTHA [address] [place] [address] 11/21/2024 9:00 AM EDT Office Visit [address] [address] Tamra Donovan FNP [address] [place] [address] Scheduled Orders Name Type Priority Associated Diagnoses Orde r Schedule CBC auto differential Lab Routine Chronic hepatitis C without hepatic coma (CMS/HCC) Expected: 10/23/2024 (Approximate), Expires: 10/23/2025 Prothrombin Time-INR Lab Routine Chronic hepatitis C without hepatic coma (CMS/HCC) Expected: 10/23/2024 (Approximate), Expires: 10/23/2025 Comprehensive Metabolic Panel Lab Routine Chronic hepatitis C without hepatic coma (CMS/HCC) Expected: 10/23/2024 (Approximate), Expires: 10/23/2025 HIV-1 RNA, Quantitative, Real-Time PCR Lab Routine Chronic hepatitis C without hepatic coma (CMS/HCC) Expected: 10/23/2024 (Approximate), Expires: 10/23/2025 Hepatitis C Viral RNA, Genotype, LiPA Lab Routine Chronic hepatitis C without hepatic coma (CMS/HCC) Expected: 10/23/2024 (Approximate), Expires: 10/23/2025 Liver Fibrosis (HCV), FibroTest-ActiTest Panel Lab Routine Chronic hepatitis C without hepatic coma (CMS/HCC) Expected: 10/23/2024 (Approximate), Expires: 10/23/2025 Hepatitis A Antibody, Total Lab Routine Chronic hepatitis C without hepatic coma (CMS/HCC) Expected: 10/23/2024 (Approximate), Expires: 10/23/2025 documented as of this encounter Goals Goal Patient Goal Type Associated Problems Recent Progress Patient-Stated? Author Increase coping skills to promote long-term recovery and improve ability to perform daily activities General On track( 025 11:35 AM EDT) No Jez Beal, RN documented as of this encounter Visit Diagnoses Diagnosis Chronic hepatitis C without hepatic coma (CMS/HCC) documented in this encounter Additional Health Concerns Assessment Noted Time PHQ-9 Depression Total Score: 5 09/22/19 25 3:06 PM EDT documented as of this encounter
--- OUTSIDE RECORDS SUMMARY | 2024-10-26 12:04 | XMS_ITS | Encounter Summary ---
Author Organization [employer] Address [address] [place] [address] [place] [address] Care Team Providers Care Cloth Tester Name Role Phone Unavailable Primary Care Provider Unavailabl e Reason for Referral * Consultation (Routine) - Authorized Specialty Diagnoses / Procedures Referred By Dontrell mcdonald Referred To Contact Family Medicine Diagnoses Chronic hepatitis C without hepatic coma (CMS/HCC) Ame Weinberg MD [address] [place] [address] Phone: tel: fax: Referral ID Status Reason Start Date Expiration Date Visits Requested Visits Authorized [id number] Authorized Specialty Services Required 10/21/2024 10/21/2025 1 1 Encounter Details Date Type Department Care Team (Late st Contact Info) Description 10/21/2024 Results Follow-Up [facility] [address] [place], [place] [phone] Ame Weinberg MD [address] [place], [place] [phone] Hepatitis C Viral RNA, Quantitative, Real-Time PCR Social History Tobacco Use Types Packs/Day Years [...] Description 10/31/2024 11:00 AM EDT Office Visit [address] [address] Ame Weinberg MD [address] [place] [address] 11/07/2024 11:00 AM EDT Clinical Support [address] [address] Jez Beal RN [address] [place] [address] 11/21/2024 9:00 AM EDT Office Visit [address] [address] Tamra Donovan FNP [address] [place] [address] Scheduled Referrals Name Type Priority Associated Diagnoses Order Schedule Referral to [facility] Infectious Disease (HIV & Hep C) Outpatient Referral Routine Chronic hepatitis C without hepatic coma (CMS/HCC) Expected: 10/21/2024 (Approximate), Expires: 10/21/2025 documented as of this encounter Goals Goal Patient Goal Type Associated Problems Recent Progress Patient-Stated? Author Increase coping skills to promote long-term recovery and improve ability to perform daily activities General On track( 025 11:35 AM EDT) No Jez Beal, MARTHA documented as of this encounter Visit Diagnoses Diagnosis Chronic hepatitis C without hepatic coma (CMS/HCC)- Primary documented in this encounter Additional Health Concerns Assessment Noted Time PHQ-9 Depression Total Score: 5 09/22/19 25 3:06 PM EDT documented as of this encounter
--- OUTSIDE RECORDS SUMMARY | 2024-10-26 12:04 | XMS_ITS | Encounter Summary ---
Author Organization [employer] Address 75 [facility] 7 [place] [address] Care Team Providers Care Health Administrator Name Role Phone Unavailable Primary Care Provider Unavailabl e Reason for Visit * Reason Comments [facility] Encounter Details Date Type Department Care Team (Late st Contact Info) Description 10/22/2024 Patient Outreach [facility] [address] [place] [address] Fritz Tucker [facility] Social History Tobacco Use Types [...] encounter Progress Notes * Fritz Tucker - 10/22/2024 3:39 PM EDT I met with Fredi today. Setting: in person at [facility] Goals worked on: Social Stability Action taken/next steps: Attended alcohol and drug free activity Additional comments: Fritz Tucker documented in this encounter Plan of Treatment Upcoming Encounters Date Type Department Care Team (Late st Contact Info) Description 10/31/2024 11:00 AM EDT Office Visit [address] [address] Ame Weinberg MD [address] [place] [address] 11/07/2024 11:00 AM EDT Clinical Support [address] [address] Jez Beal RN [address] [place] [address] 11/21/2024 9:00 AM EDT Office Visit [address] [address] Tamra Donovan FNP [address] [place] [address] documented as of this encounter Goals Goal Patient Goal Type Associated Problems Recent Progress Patient-Stated? Author Increase coping skills to promote long-term recovery and improve ability to perform daily activities General On track( 025 11:35 AM EDT) No Jez Beal RN documented as of this encounter Visit Diagnoses Not on filedocumented in this encounter Additional Health Concerns Assessment Noted Time PHQ-9 Depression Total Score: 5 09/22/19 25 3:06 PM EDT documented as of this encounter
--- OUTSIDE RECORDS SUMMARY | 2024-10-26 12:04 | XMS_ITS | Encounter Summary ---
Author Organization [employer] Address 75 [facility] 7t [place] [address] Care Team Providers Care Firer Boiler Name Role Phone Unavailable Primary Care Provider Unavailabl e Encounter Details Date Type Department Care Team (Latest Contact Info) Description 10/26/2024 Travel Social History Tobacco Use Types Packs/Day [...] Description 10/31/2024 11:00 AM EDT Office Visit [facility] [address] [place] [address] Ame Weinberg MD 230 [place] [address] 11/07/2024 11:00 AM EDT Clinical Support [address] [address] Jez Beal, MARTHA [address] [place] [address] 11/21/2024 9:00 AM EDT Office Visit [address] [address] Tamra Donovan FNP 230 [place] [address] documented as of this encounter Goals Goal [...]
--- OUTSIDE RECORDS SUMMARY | 2024-10-26 12:04 | XMS_ITS | Encounter Summary ---
Author Organization [employer] Address [address] [facility] 7 [place] [address] Care Team Providers Care Canvas Worker Name Role Phone Unavailable Primary Care Provider Unavailabl e Reason for Visit * Reason Onset Date Comments Hep C/OBAT 10/23/2024 Encounter Details Date Type Department Care Team ([facility] st Contact Info) Description 10/23/2024 Telephone [facility] [address] [place] [address] Debra Demarco, MARTHA [address] [place] [address] Hep C/OBAT Social History Tobacco Use Types Packs/Day Years [...] AM EDT documented as of this encounter Miscellaneous Notes * Telephone Encounter - Jez Beal RN - 10/24/2024 8:47 AM EDT Thank you! Pt called and rescheduled his OBAT appointment for this Tuesday. He wasn't in a private place to talk, so I will discuss Hep C treatment with him when he comes in. New phone number [phone] updated in chart. * Telephone Encounter - Debra Demarco RN - 10/23/2024 9:50 AM EDT RN called pt to nform Hep C labs ordered to start work up prior to PCP appt. No answer, LVM for return call. Please inform pt when he is at OBAT appt. Thank you documented in this encounter Plan of Treatment Upcoming Encounters Date Type Department Care Team (Late st Contact Info) Description 10/31/2024 11:00 AM EDT Office Visit [facility] [address] [place] [address] Ame Weinberg MD [address] [place] [address] 11/07/2024 11:00 AM EDT Clinical Support [facility] [address] [place] [address] Jez Beal, RN [address] [place] [address] 11/21/2024 9:00 AM EDT Office Visit [facility] [address] [place] [address] Tamra Donovan FNP [address] [place] [address] documented as of this encounter Goals Goal [...]
[2024-10-26 13:41] LABS: MANUAL DIFF FLAG NO
[2024-10-26 14:09] LABS: INTERNATIONAL NORM RATIO 1.1 (0.9-1.1); Prothrombin Time 12.3 SEC (10.9-12.4)
[2024-10-26 14:13] LABS: Alanine Aminotransferase 31 U/L (0-40); Albumin Level 4.7 g/dL (3.5-5.0); Alkaline Phosphatase 74 U/L (39-117); Anion Gap 10 (12-20); Aspartate Amino Transferase 24 U/L (5-37); Blood Urea Nitrogen 18 mg/dL (9-16); Calcium 9.6 mg/dL (8.4-10.2); Carbon Dioxide 27 mmol/L (22-29); Chloride 107 mmol/L (96-108); Estimated Glomerular Filt Rate > 60; Potassium 4.3 mmol/L (3.3-5.1); Sodium 140 mmol/L (135-145); Total Protein 7.6 g/dL (6.5-8.0)
[2024-10-26 14:23] LABS: ~Hepatitis A Antibody IgG 9.45 S/CO (0.00-0.99)
[2024-10-26 14:35] LABS: Hematocrit 41.0 % (42.0-52.0); Hemoglobin 13.4 g/dl (14.0-18.0); Imm Gran Abs Auto 0.04 X10*3/uL (0.00-0.03); Imm Gran Pct Auto 0.3 % (0.0-0.4); Lymphocytes Absolute Auto 2.5 X10*3/uL (1.2-4.9); Mean Corpuscular HGB Conc 32.7 g/dl (31.0-36.0); Mean Corpuscular Hemoglobin 26.9 pg (27.0-33.0); Mean Corpuscular Volume 82.3 fL (80.0-98.0); NRBC Abs Auto 0.000 X10*3/uL (0.0-0.012); NRBC Pct Auto 0.0 /100WBC (0.0-0.2); Platelet Count 321 X10*3/uL (160-400); Red Blood Count 4.98 X10*6/uL (4.60-5.80); White Blood Count 12.7 X10*3/uL (4.8-10.8)
[2024-10-27 18:18] LABS: HIV RNA PCR Qn Copies NOT DETECTED copies/mL (NOT DETECTED); HIV RNA PCR Qn Log Copies NOT DETECTED (NOT DETECTED)
[2024-11-03 17:48] LABS: FIB-ALT 17 U/L (9-46); FIB-Alpha-2-Macroglobulin 189 mg/dL (106-279); FIB-Apolipoprotein A1 152 mg/dL (94-176); FIB-GGT 86 U/L (3-70); FIB-Haptoglobin 116 mg/dL (43-212); FIB-Total Bilirubin 0.4 mg/dL (0.2-1.2); Liver Fibrosis Score 0.16; Liver Fibrosis Stage F0; Nec Inflam Act Grade A0; Nec Inflam Act Score 0.05
== END 2024-10-26 11:26 | disposition home or self-care (01) ==
LOC: HO.HHCL 11:25
PROVIDERS: PCP Family Medicine; Visit Provider Family Medicine
DX: B18.2 Chronic viral hepatitis C (principal)
CPT/HCPCS: 36415; 80053; 81596; 85025; 85610; 86708; 87536; 87902

== ENCOUNTER 2024-12-10 11:26 | Outpatient (REF) | payer MEDICAID, SELFPAY ==
--- OUTSIDE RECORDS SUMMARY | 2024-12-05 09:45 | XMS_ITS | Encounter Summary ---
Author Organization [employer] Address [address] [place] [address] 7t [place] [address] Care Team Providers Care Cardiology Consultant Name Role Phone Unavailable Primary Care Provider Unavailabl e Reason for Visit * Reason Comments OBAT F/U Encounter Details Date Type Department Care Team (Latest Contact Info) Description 12/05/2024 10:45 AM EDT Clinical Support [facility] [address] [place] [address] Jez Beal RN [address] [place] [address] Opioid dependence, uncomplicated (CMS/HCC) (HCC) (Primary Dx); Encounter for immunization Social History Tobacco Use [...] of this encounter Progress Notes * Jez Beal, MARTHA - 12/05/2024 10:45 AM EDT Fredi Stone is a 29 y.o. male who presents for OBAT RV. Patient on Sublocade 300mg monthly. Patient has been in the program for 4 months. Provider intake: 09/18/24. LFTs: done 10/17/24. Patient actively enrolled in behavioral health services, therapist Sam, appointment 09/27/24. [facility] reviewed by provider. PCP: INFORMATION TECHNOLOGY PROJECT MANAGER appointment rescheduled on 12/21/2024 with [facility] Smoking status 1/2-1 ppd 10/03/24. Hep B: not immune 10/17/24. Completed Heplisav-B vaccine series 12/05/24. Hep A: immune 10/17/24 HIV: non-reactive 10/17/24 Hepatitis C: Hep C ab positive, HCV RNA 288 on 10/17/24 Reports he was treated by his aunt, who is a doctor, [place] but does not remember the name of the medication. He will ask her. Hep C genotype unable to be performed due to low viral load. Dr. De La Cruz would like to recheck HCV RNA in 3 months and if still present treat at that time - due for recheck 01/15/25. Buprenorphine (Sublocade) treatment history: Initial dose: 300 mg on 10/03/24 2nd dose: 300 mg on 10/31/24 3rd dose: 300 mg 12/05/24 (delayed because was in treatment program in [facility] and elected notto take Suboxone) Last Visit 11/28/2024 - pt at [facility] treatment program Fredi states he has not restarted suboxone. He was supposed to get sublocade today. He is feeling alittle tired, but no overt withdrawal-like symptoms. He has an interview with one of [facility] today, and is hoping to come back on 12/04/24. If he does not get accepted, then he states he will call our office. However, he also wants us to speak with [facility] staff for transition of care planning. He states he is unable to sleep, and has been doubling mirtazapine. Informed that maximum mirtazapine dose is 45 mg, and offered a new script. [facility] from [facility] pharmacy. Today 12/05/24 Utox BUP, THC Fredi here today for follow up for opioid use disorder. Reports he is living at [place] and [facility]. Was due for Sublocade 11/30/24 and has been feeling some withdrawal symptoms. Bridge Suboxone Rx had been picked up by the program he was previously staying at ([facility]) but pt did not want to take it. Wants to resume Sublocade 300 mg today, and wants to try in abdomen. Reports last sub stance use besides marijuana was crack cocaine 11/09/24. No opioid use. Completed Heplisav-B series today. Sublocade reviewed. Pt verbalized understanding. Sublocade 300 mg given SQ RLQ. Pt tolerated injection, no adverse reactions noted. Advised pt to call RN with any questions or concerns. Pt reports cough and requesting medication. Pt was shown to [facility] after appointment. Plan: Sublocade 300 mg monthly and management of side effects reviewed. Recovery support, harm reduction (including Narcan), and behavioral health attendance reviewed. Appointment for 1 week given. Patientexpressed understanding and agreement with continuing plan of [...] Care Team (Late st Contact Info) Description 12/12/2024 11:00 AM EST Office Visit [address] [address] Ame Weinberg MD [address] [place] [address] 12/19/2024 10:15 AM EST Clinical Support [address] [address] Jez Beal RN [address] [place] [address] 12/21/2024 10:30 AM EST Office Visit [address] [address] [place] [address] [address] documented as of this encounter Goals Goal Patient Goal Type Associated Problems Recent Progress Patient-Stated? Author Increase coping skills to promote long-term recovery and improve ability to perform daily activities General On track( 025 11:35 AM EDT) No Jez Beal, RN documented as of this encounter Procedures Procedure Name Priority Date/Time Associated Diagnosis Comments POCT MIKA-14 URINE DRUG SCREEN Routine 12/05/2024 9:16 AM EDT Opioid dependence, uncomplicated (CMS/HCC) (HCC) documented in this encounter Results * (ABNORMAL) POCT MIKA-14 Urine Drug Screen (12/05/2024 9:16 AM EDT) THC Positive(A) Negative Cocaine Screen, Urine Negative Negative Opiate [...] obtained by clean catch procedure / Unknown 12/05/2024 9:16 AM EDT Ame Weinberg MD POINT OF CARE TEST ENTER/EDIT OR DERABLES Final Result documented in this encounter Visit Diagnoses Diagnosis Opioid dependence, uncomplicated ([facility]) ([facility])- Primary Encounter for immunization documented in this encounter Administered Medications Inactive Administered Medications - up to 3 most recent administrations Medication Order MAR Action Action Date Dose Rate Site buprenorphine ER (Sublocade) 300 mg/1.5mL injection 1 each 1 each, Subcutaneous, Over 1 month, First dose on Tue12/05/24 at 1030, For 1 dose, For abdominal subcutaneous injection only Remove Sublocade from the fridge at least 15 minutes prior to administration. Discard if left at room temperature for longer than 7 days. Do not open the foil pouch until patient arrives. See package insert for specific administration instructions. Do not administer intravenously or intramuscularly.Indication s:Opioid dependence, uncomplicated ([facility]) ([facility]) Given 12/05/2024 10:30 AM EDT 1 each Right Lower Abdomen documented in this encounter Additional Health Concerns Assessment Noted Time PHQ-9 Depression Total Score: 5 09/22/19 25 3:06 PM EDT documented as of this encounter
--- NOTE | ~2024-12-10 | XR_ITS ---
EXAMINATION: XR CHEST CLINICAL INFORMATION: 1 month h/o productive cough COMPARISON: None available. TECHNIQUE: 2 views of the chest were obtained. FINDINGS: There is no pneumothorax. Lungs are clear and well aerated. Cardiac and mediastinal contours are within normal limits. There is no sign of pleural effusion. No bony abnormality is detected. XR/XR chest 2V IMPRESSION: No acute disease. Electronically signed by: Rafa Bliar MD 12/10/2024 12:20 PM DARINEL
--- OUTSIDE RECORDS SUMMARY | 2024-12-10 10:00 | XMS_ITS | Encounter Summary ---
Author Organization [employer] Address [address] [place] [address] 7 [place] [address] Care Team Providers Care Hypo Dipper Name Role Phone Unavailable Primary Care Provider Unavailabl e Reason for Visit * Reason Comments Cough Nasal Congestion Encounter Details Date Type Department Care Team (Late st Contact Info) Description 12/10/2024 10:00 AM EST Office Visit [facility] [address] [place] [address] [phone] Cash Sanchez MD [address] [place] [address] Subacute cough (Primary Dx); Tobacco dependence Social History Tobacco Use Types Packs/Day Years Used Date Smoking Tobacco: Every Day Cigarettes Smokeless Tobacco: Never Tobacco Cessation:Ready to Q uit: Not Asked; Counseling Given: Not Answered Alcohol Use Standard Drinks/Week Comments Not Currently [...] AM EDT documented as of this encounter Last Filed Vital Signs Vital Sign Reading Time Taken Comments Blood Pressure 129/89 12/10/2024 10:10 AM EST Pulse 77 12/10/2024 10:10 AM EST Temperature 36.8 C (98.2 F) 12/10/2024 10:10 AM EST Respiratory Rate 20 12/10/2024 10:1 0 AM EST Oxygen Saturation 100% 12/10/2024 10: 10 AM EST Inhaled Oxygen Concentration - - Weight 82.9 kg (182 lb 12.8 oz) 025 10:10 AM EST Height - - Body Mass Index - - documented in this encounter Progress Notes * Cash Sanchez MD - 12/10/2024 10:00 AM EST Subjective Patient ID: Fredi Stone is a 29 y.o. male. HPI 1 month ago Fredi had onset of productive cough, wheezing with SOB. No fever, chills, n/v/d, chest pain. Sister has h/o asthma. Neg T Spot 10/17/2024. Lives in [facility] in [place]. Smokes 6 cigarettes/day. In our Sublocade program. Patient Active Problem List Diagnosis Date Noted Mild episode of recurrent major depressive disorder (CMS/HCC) 09/21/2024 Anxiety 09/21/2024 Opioid dependence, uncomplicated (CMS/HCC) (HCC) 09/18/2024 Tobacco dependence 09/18/2024 The following portions of the chart were reviewed this encounter and updated as appropriate: Tobacco Allergies Meds Problems Med Hx Surg Hx Fam Hx Review of Systems Constitutional: Negative for chills and fever. Respiratory: Positive for cough, shortness of breath and wheezing. Cardiovascular: Negative for chest pain. Gastrointestinal: Negative for abdominal pain. Skin: Negative for rash. Neurological: Negative for headaches. Objective Physical Exam Constitutional: Appearance: Normal appearance. HENT: Right Ear: Tympanic membrane, ear canal and external ear normal. Left Ear: Tympanic membrane, ear canal and external ear normal. Nose: Nose normal. Mouth/Throat: Mouth: Mucous membranes are moist. Pharynx: Oropharynx is clear. Eyes: Conjunctiva/sclera: Conjunctivae normal. Pupils: Pupils are equal, round, and reactive to light. Cardiovascular: Rate and Rhythm: Normal rate and regular rhythm. Heart sounds: No murmur heard. Pulmonary: Effort: Pulmonary effort is normal. Breath sounds: Normal breath sounds. Musculoskeletal: General: Normal range of motion. Cervical back: No tenderness. Skin: Findings: No rash. Neurological: Mental Status: He is alert. Gait: Gait is intact. Psychiatric: Mood and Affect: Mood normal. Behavior: Behavior normal. Procedures Assessment/Plan Diagnoses and all orders for this visit: Subacute cough Negative rapid Covid and Influenza tests. Chest X-rays done in [facility] appear to show no acute finding when I reviewed images. Will call pt if radiologist reading differs. Prescribed Albuterol HFA with spacer, prednisone. Rtc if not improving. - Influenza B (ID NOW Rapid Molecular) - Influenza A (ID NOW Rapid Molecular) - POCT COVID-19 Ag Goncalves ID NOW - XR Chest 2 Views; Future Tobacco dependence Prescribed nicotine patches and lozenges. Other orders - nicotine (Nicoderm CQ) 14 MG/24HR patch; Place 1 patch on the skin 1 (one) time each day at the same time. - nicotine (Nicoderm CQ) 7 MG/24HR patch; Place 1 patch on the skin 1 (one) time each day at the same time. - nicotine polacrilex (Commit) 2 MG lozenge; Dissolve 1 lozenge (2 mg) in the mouth if needed for smoking cessation. - albuterol 108 (90 Base) MCG/ACT inhaler; Inhale 2 puffs every 4 (four) hours if needed for wheezing or shortness of breath. - predniSONE (Deltasone) 20 MG tablet; Take 2 tablets (40 mg) by mouth Once per day for 5 days. - Spacer/Aero-Holding Chambers (OptiChamber Paz) misc; 1 each every 4 (four) hours if needed (asthma). documented in this encounter Plan of Treatment Upcoming Encounters Date Type Department Care Team (Late st Contact Info) Description 12/12/2024 11:00 AM EST Office Visit [facility] [address] [place] [address] Ame Weinberg MD [address] [place] [phone] 12/19/2024 10:15 AM EST Clinical Support [address] [address] Jez Beal, RN [address] [place] [address] 12/21/2024 10:30 AM EST Office Visit [address] [address] CamdenLeslie FNP [address] [place] [address] documented as of this encounter Goals Goal Patient Goal Type Associated Problems Recent Progress Patient-Stated? Author Increase coping skills to promote long-term recovery and improve ability to perform daily activities General On track( 025 11:35 AM EDT) No Jez Beal, RN documented as of this encounter Procedures Procedure Name Priority Date/Time Associated Diagnosis Comments XR CHEST 2 VIEWS Routine 12/10/2024 12:0 8 PM EST Subacute cough POCT INFLUENZA B (ID NOW RAPID MOLECULAR) Routine 12/10/2024 10:52 AM EST Subacute cough POCT INFLUENZA A (ID NOW RAPID MOLECULAR) Routine 12/10/2024 10:52 AM EST Subacute cough POCT COVID-19 AG GONCALVES ID NOW Routine 12/10/2024 10:52 AM EST Subacute cough documented in this encounter Results * XR Chest 2 Views (12/10/2024 12:08 PM EST) Anatomical Region Laterality Modality Chest Radiographic Mckenzie ging 12/10/2024 12:0 8 PM EST Narrative 12/10/2024 12:23 PM EST [address] [address] XRay Report Signed Patient: Fredi Staples MR#: [id number] : 1995 Acct:[id number] Age/Sex: 29 / M ADM Date: 12/10/24 Loc: HO.HHCX Attending Dr: Cash Sanchez MD Ordering Physician: CASH SANCHEZ MD Date of Service: 12/10/24 Procedure(s): XR chest 2V Accession Number(s): [id number] cc: CASH SANCHEZ MD Reason for Exam: 1 month h/o productive cough EXAMINATION: XR CHEST CLINICAL INFORMATION: 1 month h/o productive cough COMPARISON: None available. TECHNIQUE: 2 views of the chest were obtained. FINDINGS: There is no pneumothorax. Lungs are clear and well aerated. Cardiac and mediastinal contours are within normal limits. There is no sign of pleural effusion. No bony abnormality is detected. XR/XR chest 2V IMPRESSION: No acute disease. Electronically signed by: Rafa Blair MD 12/10/2024 12:20 PM EST Dictated By: Rafa Blair MD Signed By: <Electronically signed by Rafa Blair MD in OV> 12/10/24 1220 DD/ 1208 TD/TT: 12/10/24 1210 Program Services Planner: Procedure Note Donotuseinterpreter, Image - 12/10/[address] [address] XRay Report Signed Patient: Fredi StaplesMR#: [id number] : 1995Acct:[id number] Age/Sex: 29 / MADM Date: 12/10/24 Loc: HO.HHCX Attending Dr: Cash Sanchez MD Ordering Physician: CASH SANCHEZ MD Date of Service: 12/10/24 Procedure(s): XR chest 2V Accession Number(s): [id number] cc: CASH SANCHEZ MD Reason for Exam: 1 month h/o productive cough EXAMINATION: XR CHEST CLINICAL INFORMATION: 1 month h/o productive cough COMPARISON: None available. TECHNIQUE: 2 views of the chest were obtained. FINDINGS: There is no pneumothorax. Lungs are clear and well aerated. Cardiac and mediastinal contours are within normal limits. There is no sign of pleural effusion. No bony abnormality is detected. XR/XR chest 2V IMPRESSION: No acute disease. Electronically signed by: Rafa Blair MD 12/10/2024 12:20 PM EST RP Dictated By: Rafa Blair MD Signed By: <Electronically signed by Rafa Blair MD in OV> 12/10/24 1220 DD/ 1208 TD/TT: 12/10/24 1210 Program Services Planner: Cash Sanchez MD IMG XR PROCEDURES Edited Result - Final * POCT COVID-19 Ag Goncalves ID NOW (12/10/2024 10:52 AM EST) Coronavirus Antigen PCR Negative Negative, Indeterminate, None Detected, Invalid, Specimen unsatisfactory for evaluation, Weakly Positive, 2+ Swab 12/10/2024 10:5 2 AM EST Cash Sanchez MD POINT OF CARE TEST ENTER/EDIT OR DERABLES Final Result * Influenza A (ID NOW Rapid Molecular) (12/10/2024 10:52 AM EST) Influenza A Negative Negative, Indeterminate [facility] Swab 12/10/2024 10:5 2 AM EST us Cash Sanchez MD POINT OF CARE TEST ENTER/EDIT OR DERABLES Final Result Performing Organization Address [facility] Co de Phone Number [facility] [address] [place] [phone] * Influenza B (ID NOW Rapid Molecular) (12/10/2024 10:52 AM EST) Influenza B Negative Negative, Indeterminate [facility] Swab 12/10/2024 10:5 2 AM EST us Cash Sanchez MD POINT OF CARE TEST ENTER/EDIT OR DERABLES Final Result Performing Organization Address [facility] de Phone Number [facility] [address] [place] [phone] documented in this encounter Visit Diagnoses Diagnosis Subacute cough- Primary Tobacco dependence Tobacco use disorder documented in this encounter Additional Health Concerns Assessment Noted Time PHQ-9 Depression Total Score: 5 09/22/19 25 3:06 PM EDT documented as of this encounter
--- OUTSIDE RECORDS SUMMARY | 2024-12-10 14:34 | XMS_ITS | Encounter Summary ---
Author Organization [employer] Address [address] [facility] 7t [place] [address] Care Team Providers Care Recreation Leader Name Role Phone Unavailable Primary Care Provider Unavailabl e Encounter Details Date Type Department Care Team ([facility] st Contact Info) Description 09/26/2024 Orders Only [facility] [address] [place] [address] Ame Weinberg MD [address] [place] [address] Social History Tobacco Use Types Packs/Day Years [...] Description 12/12/2024 11:00 AM EST Office Visit [address] [address] Ame Weinberg MD [address] [place] [phone] 12/19/2024 10:15 AM EST Clinical Support [address] [address] Jez Beal, MARTHA [address] [place] [address] 12/21/2024 10:30 AM EST Office Visit [address] [address] [place] VistaLeslie FN[address] [address] documented as of this encounter Goals Goal [...] C Viral Load 288(A) NOT DETECTED IU/mL [facility] HCV Log PCR 2.46(A) NOT DETECTED Log IU/mL [facility] Comment:For additional infor husam, please refer tohttp://education.[employer]/faq/JPN81k5(This link is being provided for informational/educational purposes only.)THIS TEST WAS PERFORMED AT:[facility] [place] [phone] GROVER MD 10/17/2024 9:54 AM EDT 10/18/2024 10:44 AM EDT us Cash Guillen MD LAB BLOOD ORDERABLES Final Resul t [facility] [address] [place] [address] [phone] documented in this encounter Visit Diagnoses Not on filedocumented in this encounter Additional Health Concerns Assessment Noted Time PHQ-9 Depression Total Score: 5 09/22/19 25 3:06 PM EDT documented as of this encounter
--- OUTSIDE RECORDS SUMMARY | 2024-12-10 14:34 | XMS_ITS | Encounter Summary ---
Author Organization [employer] Address [address] [place] [address] 7 [place] [address] Care Team Providers Care Reed Repairer Name Role Phone Unavailable Primary Care Provider Unavailabl e Reason for Visit * Reason Onset Date Comments Appointment Request 12/10/2024 Encounter Details Date Type Department Care Team ([facility] st Contact Info) Description 12/10/2024 Telephone [facility] [address] [place] [address] Jez Beal RN [address] [place] [address] Appointment Request Social History Tobacco Use Types Packs/Day Years [...] Telephone Encounter - Jez Beal RN - 12/10/2024 8:32 AM EST Pt called requesting assistance with appointment to be seen for cough, congestion x1 week. Spoke with manager case at his program, Orly Merino, and he can get transportation this morning. Spoke with Aura THOMAS in [facility] and pt was pre-booked, given transportation/program constraints. Pt is active in [facility] program, last Sublocade injection 12/05/24, and has upcoming new PCP appointment 12/21/24 with [facility] [employer]. documented in this encounter Plan of Treatment Upcoming Encounters Date Type Department Care Team (Late st Contact Info) Description 12/12/2024 11:00 AM EST Office Visit [facility] [address] [place] [address] Ame Weinberg MD [address] [place] [phone] 12/19/2024 10:15 AM EST Clinical Support [address] [address] Jez Beal RN [address] [place] [address] 12/21/2024 10:30 AM EST Office Visit [facility] [address] [place] [address] KilleenLeslie, [employer] [address] [place] [address] documented as of this encounter Goals Goal [...]
--- OUTSIDE RECORDS SUMMARY | 2024-12-10 14:34 | XMS_ITS | Encounter Summary ---
Author Organization [employer] Address [address] [facility] 7t [place] [address] Care Team Providers Care Crop Farmers Name Role Phone Unavailable Primary Care Provider Unavailabl e Encounter Details Date Type Department Care Team (Latest Contact Info) Description 12/10/2024 Travel Social History Tobacco Use Types Packs/Day [...] Description 12/12/2024 11:00 AM EST Office Visit [address] [address] Ame Weinberg MD [address] [place] [address] 12/19/2024 10:15 AM EST Clinical Support [address] [address] Jez Beal, MARTHA [address] [place] [phone] 12/21/2024 10:30 AM EST Office Visit [address] [address] Leslie Land FNP [address] [place] [address] documented as of this encounter Goals Goal [...]
--- OUTSIDE RECORDS SUMMARY | 2024-12-10 14:34 | XMS_ITS | Encounter Summary ---
Author Organization [employer] Address [address] [facility] 7t [place] [address] Care Team Providers Care Cloth Doffer Name Role Phone Unavailable Primary Care Provider Unavailabl e Encounter Details Date Type Department Care Team (Latest Contact Info) Description 10/29/2024 Results Follow-Up [facility] [address] [place] [address] Kenya Leon MD [address] [place] [address] Prothrombin Time-INR, Comprehensive Metabolic Panel, Hepatitis A Antibody, Total, Additional followed-up results: 2 Social History Tobacco Use Types Packs/Day Years [...] as of this encounter Miscellaneous Notes * Result Encounter Note - Kenya Leon MD - 10/29/2024 9:48 AM EDT FYI. documented in this encounter Plan of Treatment Upcoming Encounters Date Type Department Care Team (Late st Contact Info) Description 12/12/2024 11:00 AM EST Office Visit [address] [address] Ame Weinberg MD [address] [place] [phone] 12/19/2024 10:15 AM EST Clinical Support [address] [address] Jez Beal, MARTHA [address] [place] [address] 12/21/2024 10:30 AM EST Office Visit [address] [address] Leslie Land FNP [address] [place] [address] documented as of this encounter Goals Goal [...]
--- OUTSIDE RECORDS SUMMARY | 2024-12-10 14:34 | XMS_ITS | Encounter Summary ---
Author Organization [employer] Address [address] [facility] 7t [place] [address] Care Team Providers Care Chronic Condition Nurse Name Role Phone Unavailable Primary Care Provider Unavailabl e Encounter Details Date Type Department Care Team (Latest Contact Info) Description 12/05/2024 Travel Social History Tobacco Use Types Packs/Day [...] Description 12/12/2024 11:00 AM EST Office Visit [address] [address] Ame Weinberg MD [address] [place] [address] 12/19/2024 10:15 AM EST Clinical Support [address] [address] Jez Beal, MARTHA [address] [place] [address] 12/21/2024 10:30 AM EST Office Visit [address] [address] Leslie Land FNP [address] [place] [address] documented as of this encounter Goals Goal [...]
--- OUTSIDE RECORDS SUMMARY | 2024-12-10 14:34 | XMS_ITS | Encounter Summary ---
Author Organization [employer] Address [address] [facility] 7t [place] [address] Care Team Providers Care Director Of Science Name Role Phone Unavailable Primary Care Provider Unavailabl e Encounter Details Date Type Department Care Team ([facility] st Contact Info) Description 11/20/2024 Orders Only [facility] [address] [place], [place] [phone] Ame Weinberg MD [address] [place] [address] Opioid dependence, uncomplicated (CMS/HCC) (HCC) (Primary Dx) Social History Tobacco Use Types [...] Description 12/12/2024 11:00 AM EST Office Visit [address] [address] Ame Weinberg MD [address] [place] [phone] 12/19/2024 10:15 AM EST Clinical Support [address] [address] Jez Beal, MARTHA [address] [place] [address] 12/21/2024 10:30 AM EST Office Visit [address] [address] BeulahLeslie FN[address] [address] documented as of this encounter Goals Goal Patient Goal Type Associated Problems Recent Progress Patient-Stated? Author Increase coping skills to promote long-term recovery and improve ability to perform daily activities General On track( 025 11:35 AM EDT) No Jez Beal, RN documented as of this encounter Visit Diagnoses Diagnosis Opioid dependence, uncomplicated (CMS/HCC) (HCC)- Primary documented in this encounter Additional Health Concerns Assessment Noted Time PHQ-9 Depression Total Score: 5 08/15/20 25 3:06 PM EDT documented as of this encounter
--- OUTSIDE RECORDS SUMMARY | 2024-12-10 14:34 | XMS_ITS | Encounter Summary ---
Author Organization [employer] Address [address] [place] [address] 7 [place] [address] Care Team Providers Care Bee Keeper Name Role Phone Unavailable Primary Care Provider Unavailabl e Reason for Referral * Consultation (Routine) - Closed Specialty Diagnoses / Procedures Referred By Dontrell t Referred To Contact Family Medicine Diagnoses Chronic hepatitis C without hepatic coma (HCC) Ame Weinberg MD [address] [place] [address] Phone: tel: fax: Referral ID Status Reason Start Date Expiration Date V isits Requested Visits Authorized [id number] Closed Specialty Services Required 10/21/2024 10/21/2025 1 1 Encounter Details Date Type Department Care Team ([facility] st Contact Info) Description 10/21/2024 Results Follow-Up [facility] [address] [place] [address] [phone] Ame Weinberg MD [address] [place] [address] Hepatitis C Viral RNA, Quantitative, Real-Time PCR [...] Description 12/12/2024 11:00 AM EST Office Visit [address] [address] Ame Weinberg MD [address] [place] [address] 12/19/2024 10:15 AM EST Clinical Support [address] [address] Jez Beal RN [address] [place] [address] 12/21/2024 10:30 AM EST Office Visit [address] [address] [place] Leslie, REGIONAL ECONOMIST [address] [place] [address] Scheduled Referrals Name Type Priority Associated Diagnoses [...] Diagnosis Chronic hepatitis C without hepatic coma (HCC)- Primary documented in this encounter Additional Health Concerns Assessment Noted Time PHQ-9 Depression Total Score: 5 09/22/19 25 3:06 PM EDT documented as of this encounter
--- OUTSIDE RECORDS SUMMARY | 2024-12-10 14:34 | XMS_ITS | Encounter Summary ---
Author Organization [employer] Address [address] [facility] 7t [place] [address] Care Team Providers Care Math Interventionist Name Role Phone Unavailable Primary Care Provider Unavailabl e Encounter Details Date Type Department Care Team ([facility] st Contact Info) Description 10/19/2024 Results Follow-Up [facility] [address] [place] [address] Ame Weinberg MD [address] [place] [address] Hepatic Function Panel, Hepatitis A Antibody, Total, [...] Description 12/12/2024 11:00 AM EST Office Visit [address] [address] Ame Weinberg MD [address] [place] [address] 12/19/2024 10:15 AM EST Clinical Support [address] [address] Jez Beal RN [address] [place] [address] 12/21/2024 10:30 AM EST Office Visit [address] [address] documented as of this encounter Goals Goal [...]
--- OUTSIDE RECORDS SUMMARY | 2024-12-10 14:34 | XMS_ITS | Clinical Summary ---
Author Organization [facility] Address [address] [place] [address] [address] [place] [address] Care Team Providers Care Clinical Research Coordinator Name Role Phone Unavailable Primary Care Provider Unavailabl e Allergies No known active allergies Medications * This document contains information received from the source organization and may not represent a complete record from that organization. naloxone (Narcan) 4 mg/0.1 mL nasal sprayIndications :Opioid dependence, uncomplicated (CMS/HCC) (HCC) Administer 1 spray (4 mg) into affected nostril(s) if needed for opioid reversal. May repeat every 2-3 minutes if needed, alternating nostrils, until medical assistance becomes available. 2 each 025 2025 Active docusate sodium (Colace) 100 MG capsuleIndicatio ns:Opioid dependence, uncomplicated (CMS/HCC) (HCC) Take 1 capsule (100 mg) by mouth if needed in the morning and at bedtime for constipation. 60 capsule 3 025 2025 Active buprenorphine ER (Sublocade) 300 mg/1.5mL injectionIndicat ions:Opioid dependence, uncomplicated (CMS/HCC) (HCC) Inject 1.5 mL (1 each) under the skin every month to absorb continually. 1.5 mL 1 025 2024 Active bisacodyl (Dulcolax) 5 MG EC tablet Take 1 tablet by mouth once a day if no bowel movement for 3 days. Do not crush, chew, or split. 30 tablet 2 Active hydrOXYzine pamoate (Vistaril) 25 MG capsule Take 1 capsule by mouth a day as needed for anxiety or insomnia. May take additional 1 capsule a day. 60 capsule 2 Active mirtazapine (Remeron) 30 MG tablet Take 1 tablet (30 mg) by mouth at bedtime. 30 tablet 2 Active senna (Senokot) 8.6 MG tablet Take 1 or 2 tablets by mouth at bedtime as needed for constipation 60 tablet 2 Active Suboxone 8-2 MG SL filmIndications: Opioid dependence, uncomplicated (CMS/HCC) (HCC) Place 1 Film under the tongue 3 times daily for 28 days. 84 Film 2024 Active nicotine (Nicoderm CQ) 14 MG/24HR patch Place 1 patch on the skin 1 (one) time each day at the same time. 42 patch 2024 Active nicotine (Nicoderm CQ) 7 MG/24HR patch Place 1 patch on the skin 1 (one) time each day at the same time. 14 patch 2024 Active nicotine polacrilex (Commit) 2 MG lozenge Dissolve 1 lozenge (2 mg) in the mouth if needed for smoking cessation. 100 lozenge 2024 Active albuterol 108 (90 Base) MCG/ACT inhaler Inhale 2 puffs every 4 (four) hours if needed for wheezing or shortness of breath. 18 g 1 2025 Active predniSONE (Deltasone) 20 MG tablet Take 2 tablets (40 mg) by mouth Once per day for 5 days. 10 tablet 2024 Active Spacer/Aero-Hold ing Chambers (OptiChamber Paz) misc 1 each every 4 (four) hours if needed (asthma). 1 each Active senna (Senokot) 8.6 MG tablet Take 1 or 2 tablets by mouth at bedtime as needed for constipation 60 tablet 2 025 2024 Discontinued(R eorder (will not trigger notification to Pharmacy)) bisacodyl (Dulcolax) 5 MG EC tablet Take 1 tablet by mouth once a day if no bowel movement for 3 days. Do not crush, chew, or split. 30 tablet 2 2024 Discontinued(R eorder (will not trigger notification to Pharmacy)) buprenorphine ER (Sublocade) 300 mg/1.5mL injectionIndicat ions:Opioid dependence, uncomplicated (CMS/HCC) ([facility]) Inject 1.5 mL (1 each) under the skin every month to absorb continually. 1.5 mL 1 2024 Discontinued(R eorder (will not trigger notification to Pharmacy)) mirtazapine (Remeron) 30 MG tablet Take 1 tablet (30 mg) by mouth at bedtime. 30 tablet 1 2024 Discontinued(R eorder (will not trigger notification to Pharmacy)) hydrOXYzine pamoate (Vistaril) 25 MG capsule Take 1 capsule by mouth a day as needed for anxiety or insomnia. May take additional 1 capsule a day. 60 capsule 1 2024 Discontinued(R eorder (will not trigger notification to Pharmacy)) bisacodyl (Dulcolax) 5 MG EC tablet Take 1 tablet by mouth once a day if no bowel movement for 3 days. Do not crush, chew, or split. 30 tablet 2024 Discontinued(R eorder (will not trigger notification to Pharmacy)) hydrOXYzine pamoate (Vistaril) 25 MG capsule Take 1 capsule by mouth a day as needed for anxiety or insomnia. May take additional 1 capsule a day. 60 capsule 2024 Discontinued(R eorder (will not trigger notification to Pharmacy)) mirtazapine (Remeron) 30 MG tablet Take 1 tablet (30 mg) by mouth at bedtime. 30 tablet 2024 Discontinued(R eorder (will not trigger notification to Pharmacy)) senna (Senokot) 8.6 MG tablet Take 1 or 2 tablets by mouth at bedtime as needed for constipation 60 tablet 2024 Discontinued(R eorder (will not trigger notification to Pharmacy)) Suboxone 8-[address] 1 Film under the tongue 3 times daily. 025 2024 Discontinued(R eorder (will not trigger notification to Pharmacy)) Suboxone 8-2 MG SL filmIndications: Opioid dependence, uncomplicated (CMS/HCC) (HCC) Place 1 Film under the tongue 3 times daily for 7 days. 21 Film 025 2024 Discontinued(R eorder (will not trigger notification to Pharmacy)) Suboxone 8-2 MG SL filmIndications: Opioid dependence, uncomplicated (CMS/HCC) (HCC) Place 1 Film under the tongue 3 times daily for 7 days. 21 Film 025 2024 Discontinued(R eorder (will not trigger notification to Pharmacy)) Suboxone 8-2 MG SL filmIndications: Opioid dependence, uncomplicated (CMS/HCC) (HCC) Place 1 Film under the tongue 3 times daily for 28 days. 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 Rx 25 mg, may take two if inadequate. - connected with integrated behavioral health service Assessment & Plan (10/03/2024 11:53 AM EDT): - prescribed mirtazapine 30 mg at bedtime and hydroxyzine 50 mg (?) while in the [facility] - resume mirtazapine. Rx sent. - resume hydroxyzine. Rx 25 mg, may take two if inadequate. - connected with integrated behavioral health service Anxiety 09/21/2024 Opioid dependence, uncomplicated ([facility]/HCC) 09/18 Assessment & Plan (11/28/2024 11:20 AM EDT): - stage of change: Action / Early remission - Utox review: neg opi - Overdose risk: high, decreased tolerance, mixed use, history of overdose - Continue current recovery support - Continue current recovery effort - Received buprenorphine (Sublocade) 300 mg on 10/03/24 and 10/31/24. - Unable to receive sublocade today on 11/28/24. Patient was given suboxone, but has not taken and does not want suboxone. - Will resume sublocade as soon as he returns here - Reviewed harm reduction and overdose prevention Assessment & Plan (10/31/2024 3:03 PM EDT): - stage of change: Action / Early remission - Utox review: neg opi - Overdose risk: high, decreased tolerance, mixed use, history of overdose - Continue current recovery support - Continue current recovery effort - Currently receiving buprenorphine (Sublocade) 300 mg q4wk, started on 10/03/24. Continue current dose. - Reviewed harm reduction and overdose prevention Assessment & Plan (10/17/2024 5:27 AM EDT): [...] organization. Date Type Department Care Team Description 12/10/2024 10:00 AM EST Office Visit [facility] [address] [place] [phone] Cash Guillen MD Subacute cough (Primary Dx); Tobacco dependence 12/10/2024 Telephone [facility] [address] [place] [phone] Jez Beal RN Appointment Request 12/10/2024 Travel 12/05/2024 10:45 AM EDT Clinical Support [address] [address] Jez Beal RN Opioid dependence, uncomplicated (CMS/HCC) (HCC) (Primary Dx); Encounter for immunization 12/05/2024 Travel 11/28/2024 9:30 AM EDT Telemedicine [address] [address] Ame Weinberg MD Opioid dependence, uncomplicated (CMS/HCC) (HCC) (Primary Dx); Mild episode of recurrent major depressive disorder (CMS/HCC) 11/28/2024 Travel 11/21/2024 Refill [facility] [address] [place] [address] Jez Beal RN Opioid dependence, uncomplicated (CMS/HCC) (HCC) 11/21/2024 Refill [facility] [address] [place] [address] Jez Beal RN Opioid dependence, uncomplicated (CMS/HCC) (HCC) 11/20/2024 Orders Only [facility] [address] [place] [address] Ame Weinberg MD Opioid dependence, uncomplicated (CMS/HCC) (HCC) (Primary Dx) 11/20/[address] [address] Melissa Guillaume, MARTHA Med Refill 11/15/2024 Refill [facility] [address] [place] [address] Jez Beal, MARTHA 11/14/2024 Patient Outreach [facility] [address] [place] [address] Tamra Donovan FNP Pre-visit Planning (SDOH unable to reach LVM ) 11/14/[address] [address] Jez Beal, MARTHA Opioid dependence, uncomplicated (CMS/HCC) (HCC) 11/13/[address] [address] Herbie Arroyo RN 11/07/[address] [address] Trisha Dawson [place] 11/05/[address] [address] Jez Beal, MARTHA Hep C Management 10/31/2024 11:00 AM EDT Office Visit [address] [address] Ame Weinberg MD Opioid dependence, uncomplicated (CMS/HCC) (Primary Dx) 10/31/2024 Travel 10/30/2024 Patient Outreach [address] [address] Leroy Low Recovery Supports 10/29/2024 Patient Outreach [address] [address] Sunday Lopez Recovery Supports 10/29/2024 Results Follow-Up [address] [address] Kenya Leon MD Prothrombin Time-INR, Comprehensive Metabolic Panel, Hepatitis A Antibody, Total, Additional followed-up results: 2 10/26/2024 11:30 AM EDT Clinical Support [address] [address] Jez Beal, MARTHA Opioid dependence, uncomplicated (CMS/HCC); Encounter for immunization 10/26/2024 Patient Outreach [address] [facility] [place] [address] Ermias Wilks RC Recovery Supports 10/26/2024 Orders Only [facility] [place] [address] Kenya Leon MD 10/26/2024 Travel 10/23/2024 Telephone [facility] [place] [address] Debra Demarco, RN Hep C/OBAT 10/23/2024 Orders Only [address] [place] [address] Debra Demarco, care taker hepatitis C without hepatic coma (CMS/HCC) 10/22/2024 Patient Outreach [address] [place] [address] Fritz Tucker Recovery Supports 10/22/2024 Patient Outreach [address] [address] Ermias Wilks Recovery Supports 10/21/2024 Results Follow-Up [address] [address] Ame Weinberg MD Hepatitis C Viral RNA, Quantitative, Real-Time PCR 10/19/2024 Results Follow-Up [address] [place] [address] Ame Weinberg MD Hepatic Function Panel, Hepatitis A Antibody, Total, Hepatitis B Core Antibody, Total, Additional followed-up results: 5 10/17/2024 9:45 AM EDT Office Visit [facility] [place] [address] Ame Weinberg MD Opioid dependence, uncomplicated (CMS/HCC) (Primary Dx) 10/17/2024 Travel 10/15/2024 Patient Outreach [facility] [place] [address] Fritz Tucker Recovery Supports 10/12/2024 Patient Outreach [address] [address] Pranav De La Fuente RC Recovery Supports 10/10/2024 11:00 AM EDT Clinical Support [address] [address] Jez Beal, MARTHA Opioid dependence, uncomplicated (CMS/HCC) (Primary Dx) 10/10/2024 9:00 AM EDT Office Visit [address] [address] Elias Garcia MD Opioid dependence, uncomplicated (CMS/HCC) (Primary Dx) 10/10/2024 Travel 10/05/2024 Patient Outreach [address] [phone] Ermias Wilks Recovery Supports 10/03/2024 11:00 AM EDT Office Visit [address] [phone] Ame Weinberg MD Opioid dependence, uncomplicated (CMS/HCC) (Primary Dx); Tobacco dependence; Anxiety; Mild episode of recurrent major depressive disorder (CMS/HCC) 10/03/2024 Travel 09/28/2024 Patient Outreach [address] [phone] Ermias Wilks Recovery Supports 09/28/[address] [address] Roxann Mckeon RN 09/27/2024 1:00 PM EDT Clinical Support [address] [address] Jez Beal RN Opioid dependence, uncomplicated (CMS/HCC) (Primary Dx) 09/27/2024 Travel 09/26/2024 11:15 AM EDT Clinical Support [address] [address] Jez Beal RN Opioid dependence, uncomplicated (CMS/HCC) (Primary Dx) 09/26/[address] [address] Jez Beal, MARTHA Opioid dependence, uncomplicated (CMS/HCC) (Primary Dx) 09/26/[address] [address] Jez Beal, MARTHA New PCP appointment request 09/26/2024 Orders Only [facility] [address] [place] [address] Ame Weinberg MD 09/26/2024 Patient Outreach [facility] [address] [place] [address] Sunday Lopez RC Recovery Supports 09/26/2024 Travel 09/24/2024 Patient Outreach [address] [address] Fritz Tucker RC Recovery Supports 09/21/2024 Patient Outreach [address] [address] Sunday Lopez RC Recovery Supports 09/19/2024 9:00 AM EDT Office Visit [address] [address] Elias Garcia MD Opioid dependence, uncomplicated (CMS/HCC) (Primary Dx) 09/19/[address] [address] Jez Beal RN Opioid dependence, uncomplicated (CMS/HCC) 09/19/2024 Travel 09/18/2024 1:30 PM EDT Office Visit [address] [address] Cash Guillen MD Opioid dependence, uncomplicated (CMS/HCC) (Primary Dx); Tobacco dependence 09/18/2024 Patient Outreach [address] [address] Leroy Low RC Recovery Supports 09/18/2024 Patient Outreach [address] [address] Pranav De La Fuente RC Recovery Supports 09/18/2024 Refill [facility] [address] [place] [address] Roxann Mckeon RN Opioid dependence, uncomplicated (CMS/HCC) (Primary Dx) 09/18/2024 Travel 09/17/2024 11:00 AM EDT Office Visit [address] [address] Roxann Mckeon RN Uncomplicated opioid dependence (CMS/HCC) 09/17/2024 Patient Outreach [address] [address] Fritz Tucker RC Recovery Supports 09/17/2024 Patient Outreach [facility] [address] [place] [address] Ermias Wilks Recovery Supports 09/17/2024 Travel from Last 3 Months Immunizations Immunization Administration Dates Next Due HepB-CpG 12/05/2024,10/26/2024 11/23/2024 Tdap 03/27/2019 Social History Tobacco Use Types Packs/Day Years [...] Description 12/12/2024 11:00 AM EST Office Visit [address] [address] Ame Weinberg MD [address] [place] [address] 12/19/2024 10:15 AM EST Clinical Support [address] [address] Jez Beal, MARTHA [address] [place] [address] 12/21/2024 10:30 AM EST Office Visit [address] [address] Cameron Leslie [facility] [address] [place] [address] Health Maintenance Due Date Last Done Comments Lipid Panel 1995 Disability Screening 1995 Family Planning (PISQ) 11/10/2011 HPV Vaccines (1 - Male 3-dos e series) 11/10/2011 Hepatitis A Vaccines (1 of 2 - Risk 2-dose series) 11/10/2015 Pneumococcal Vaccine: Pediatrics (0 to 5 Years) and At-Risk Patients (6 to 49) Years (1 of 2 - PCV) 11/10/2015 COVID-19 Vaccine (3 - 2024-2 6 season) 2024 02/24/2022, 05/15/2021 Influenza Vaccine (#1) 2024 Alcohol/Substance Use Screening 09/18/2025 09/18/2024 SDOH Screening 09/18/2025 09/18/2024 Depression Screening 09/21/2025 09/21/2024, 09/21/2024 Tobacco Screening 12/10/2025 12/10/2024 DTaP/Tdap/Td Vaccines (2 - T d or Tdap) 03/27/2029 03/27/2019 Zoster Vaccines (1 of 2) 2046 RSV Patients and Patients Aged 60 years or older (1 - 1-dose 75+ series) 11/10/2071 HIV Screening Completed 10/26/2024, 10/17/2024 Hepatitis B Vaccines Completed 12/05/2024, 10/26/2024 HIB Vaccines Aged Out No longer eligi [...] 025 11:35 AM EDT) No Jez Beal, product safety tester Procedure Name Priority Date/Time Associated Diagnosis Comments XR CHEST 2 VIEWS Routine 12/10/2024 12:0 8 PM EST Subacute cough POCT COVID-19 AG GONCALVES ID NOW Routine 12/10/2024 10:52 AM EST Subacute cough POCT INFLUENZA A (ID NOW RAPID MOLECULAR) Routine 12/10/2024 10:52 AM EST Subacute cough POCT INFLUENZA B (ID NOW RAPID MOLECULAR) Routine 12/10/2024 10:52 AM EST Subacute cough POCT MIKA-14 URINE DRUG SCREEN Routine 12/05/2024 9:16 AM EDT Opioid dependence, uncomplicated (CMS/HCC) (HCC) POCT MIKA-14 URINE DRUG SCREEN Routine 10/31/2024 11:46 AM EDT Opioid dependence, uncomplicated (CMS/HCC) LIVER FIBROSIS, FIBROTEST ACTITEST PANEL Routine 10/26/2024 11:45 AM EDT HEPATITIS C VIRAL RNA GENOTYPE, LIPA Routine 10/26/2024 11:45 AM EDT HIV 1 RNA, QUANTITATIVE REAL TIME PCR Routine 10/26/2024 11:45 AM EDT CBC WITH AUTO DIFFERENTIAL Routine 10/26/2024 11:45 AM EDT HEPATITIS A ANTIBODY, TOTAL Routine 10/26/2024 11:45 AM EDT COMPREHENSIVE METABOLIC PANEL Routine 10/26/2024 11:45 AM EDT PROTHROMBIN TIME-INR Routine 10/26/2024 11:45 AM EDT POCT MIKA-14 URINE DRUG SCREEN Routine 10/17/2024 [...] (CMS/HCC) from Last 3 Months Results * XR Chest 2 Views (12/10/2024 12:08 PM EST) Anatomical Region Laterality Modality Chest Radiographic Mckenzie ging 12/10/2024 12:0 8 PM EST Narrative 12/10/2024 12:23 PM EST [address] [address] XRay Report Signed Patient: Fredi Staples MR#: [id number] : 1995 Acct:[id number] Age/Sex: 29 / M ADM Date: 12/10/24 Loc: [facility] Attending Dr: Cash Guillen MD Ordering Physician: CASH GUILLEN MD Date of Service: 12/10/24 Procedure(s): XR chest 2V Accession Number(s): [id number] cc: CASH GUILLEN MD Reason for Exam: 1 month h/o [...] 12/10/24 1220 DD/ 1208 TD/TT: 12/10/24 1210 Fusing Line Inspector: Procedure Note Donotuseinterpreter, Image - 12/10/[address] [address] XRay Report Signed Patient: Fredi StaplesMR#: [id number] : 1995Acct:[id number] Age/Sex: 29 / MADM Date: 12/10/24 Loc: CARYNX Attending Dr: Cash Guillen MD Ordering Physician: CASH GUILLEN MD Date of Service: 12/10/24 Procedure(s): XR chest 2V Accession Number(s): [id number] cc: CASH GUILLEN MD Reason for Exam: 1 month h/o [...] 12/10/24 1220 DD/ 1208 TD/TT: 12/10/24 1210 Fusing Line Inspector: Cash Guillen MD IMG XR PROCEDURES Edited Result - Final * Influenza B (ID NOW Rapid Molecular) (12/10/2024 10:52 AM EST) Influenza B Negative Negative, Indeterminate [facility] Swab 12/10/2024 10:5 2 AM EST Cash Guillen MD POINT OF CARE TEST ENTER/EDIT OR DERABLES Final Result Performing Organization Address [facility] Co de Phone Number [facility] [address] [place] [phone] * Influenza A (ID NOW Rapid Molecular) (12/10/2024 10:52 AM EST) Influenza A Negative Negative, Indeterminate [facility] Swab 12/10/2024 10:5 2 AM EST Cash Guillen MD POINT OF CARE TEST ENTER/EDIT OR DERABLES Final Result Performing Organization Address [facility] Co de Phone Number [facility] [address] [place] [phone] * POCT COVID-19 Ag Goncalves ID NOW (12/10/2024 10:52 AM EST) Pathologist [facility] Coronavirus Antigen PCR Negative Negative, Indeterminate, None Detected, Invalid, Specimen unsatisfactory for evaluation, Weakly Positive, 2+ Swab 12/10/2024 10:5 2 AM EST Cash Guillen MD POINT OF CARE TEST ENTER/EDIT OR DERABLES Final Result * (ABNORMAL) POCT MIKA-14 Urine Drug Screen (12/05/2024 9:16 AM EDT) Only the most recent of8 resultswithin the time period is included. Pathologist [facility] THC Positive(A) Negative Cocaine Screen, Urine Negative [...] TEST ENTER/EDIT OR DERABLES Final Result * (ABNORMAL) Liver Fibrosis (HCV), FibroTest-ActiTest Panel (10/26/2024 11:45 AM EDT) Pathologist [facility] Liver Fibrosis Score 0.16 [facility] Liver Fibrosis Stage F0 [facility] Liver Fibrosis Interpretation SEE NOTE [facility] Comment:no fibrosisFibro Dian t Score (f) Metavir Score f>=0 and f<=0.21 : F0 (no fibrosis)f>0.21 and f<=0.27 : F0-F1 (no fibrosis)f>0.27 and f<=0.31 : F1 (minimal fibrosis)f>0.31 and f<=0.48 : F1-F2 (minimal fibrosis)f>0.48 and f<=0.58 : F2 (moderate fibrosis)f>0.58 and f<=0.72 : F3 (advanced fibrosis)f>0.72 and f<=0.74 : F3-F4 (advanced fibrosis)f>0.74 and f<=1.00 : F4 (severe fibrosis) Nec Inflam Act Score 0.05 [facility] Nec Inflam Act Grade A0 [facility] Nec Inflam Act Interpretation SEE NOTE [facility] Comment:no activityActiTest Score (a) Metavir Score a>=0 and a<=0.17 : A0 (no activity)a>0.17 and a<=0.29 : A0-A1 (no activity)a>0.29 and a<=0.36 : A1 (minimal activity)a>0.36 and a<=0.52 : A1-A2 (minimal activity)a>0.52 and a<=0.60 : A2 (significant activity)a>0.60 and a<=0.62 : A2-A3 (significant activity)a>0.62 and a<=1.00 : A3 (severe activity) XCC-Iyzri-8-Macroglo bulin 189 106 - 279 mg/dL [facility] FIB-Haptoglobin 116 43 - 212 mg/dL [facility] FIB-Apolipoprotein A1 152 94 - 176 mg/dL [facility] FIB-Total Bilirubin 0.4 0.2 - 1.2 mg/dL [facility] FIB-GGT 86(A) 3 - 70 U/L [facility] FIB-ALT 17 9 - 46 U/L [facility] Reference ID [id number] [facility] Footnote SEE NOTE [facility] Comment: The reliability of results is dependent on compliance withthe preanalytical and analytical conditions recommended by[employer]. The tests have to be deferred for: acutehemolysis, acute hepatitis, acute inflammation, extrahepatic cholestasis. The advice of a specialist should besought for interpretation in chronic hemolysis and Gilbert'ssyndrome. The test interpretation is not validated in livertransplant patients. Isolated extreme values of one of thecomponents should lead to caution in interpreting theresults. In case of discordance between a biopsy result gab test, it is recommended to seek the advice of aspecialist. The causes of these discordances could be due toa flaw of the test or to a flaw in the biopsy: i.e. a liverbiopsy has a 33% variability rate for one fibrosis stage.FibroTest is interpretable for chronic hepatitis B and C,alcoholic and non alcoholic steatosis. ActiTest isinterpretable for chronic hepatitis B and C.The performance characteristics have been determined by[employer] [facility]. Ithas not been cleared or approved by the U.S. Food and DrugAdministration. Performance characteristics refer to theanalytical performance of the test.[employer], [employer], the associated logo, [employer] and all associated [employer] morse are theregistered trademarks of [employer]. All third partymarks - (R) and (TM) - are the property of their respectiveowners. (C) [id number] [employer]. Allrights reserved.THIS TEST WAS PERFORMED AT:[employer] [id number] [place] [address]DUGVRSONIA DAVENPORT MD,PHD,TITI 10/26/2024 11:4 5 AM EDT 10/26/2024 1:27 PM EDT Kenya Leon MD LAB BLOOD ORDERABLES Final R esult [facility] [address] [place] [phone] * (ABNORMAL) CBC auto differential (10/26/2024 11:45 AM EDT) White Blood Count 12.7(H) 4.8 - 10.8 X10*3/uL [facility] Red Blood Count 4.98 4.60 - 5.80 X10*6/uL [facility] Hemoglobin 13.4(L) 14.0 - 18.0 g/dl [facility] [facility] Hematocrit 41.0(L) 42.0 - 52.0 % [facility] Mean Corpuscular Volume 82.3 80.0 - 98.0 fL [facility] Mean Corpuscular Hemoglobin 26.9(L) 27.0 - 33.0 pg [facility] Mean Corpuscular HGB Conc 32.7 31.0 - 36.0 g/dl [facility] Red Cell Distribution Width 14.4 11.0 - 16.0 % [facility] Platelet Count 321 160 - 400 X10*3/uL [facility] Mean Platelet Volume 10.5 9.4 - 12.4 fL [facility] Neutrophils Percent Auto 72.3 45 - 73 % [facility] Imm Gran Pct Auto 0.3 0.0 - 0.4 % [facility] Lymphocytes Percent Auto 19.4(L) 20 - 40 % [facility] Monocytes Percent Auto 4.7 2 - 11 % [facility] Eosinophils Percent Auto 2.8 0 - 4 % [facility] Basophils Percent Auto 0.5 0 - 2 % [facility] NRBC Pct Auto 0.0 0.0 - 0.2 /100WBC [facility] Neutrophils Absolute Auto 9.2(H) 2.0 - 8.3 x10*3/uL [facility] Imm Gran Abs Auto 0.04(H) 0.00 - 0.03 X10*3/uL [facility] Lymphocytes Absolute Auto 2.5 1.2 - 4.9 X10*3/uL [facility] Monocytes Absolute Auto 0.6 0.1 - 1.2 X10*3/uL [facility] Eosinophils Absolute Auto 0.4 0.0 - 0.4 X10*3/uL [facility] Basophils Absolute Auto 0.1 0.0 - 0.2 X10*3/uL [facility] NRBC Abs Auto 0.000 0.0 - 0.012 X10*3/uL [facility] 10/26/2024 11:4 5 AM EDT 10/26/2024 1:36 PM EDT us Kenya Leon MD LAB BLOOD ORDERABLES Final R esult Performing Organization Address [facility] Co de Phone Number [facility] [address] [place] [phone] * Hepatitis A Antibody, Total (10/26/2024 11:45 AM EDT) Only the most recent of2 resultswithin the time period is included. Hepatitis A Antibody IgG REACTIVE Nonreactive [facility] Comment:The presence of IgG anti-HAV implies past HAV infection(recent or distant) or vaccination against HAV. 10/26/2024 11:4 5 AM EDT 10/26/2024 1:27 PM EDT Kenya Leon MD LAB BLOOD ORDERABLES Final R esult Performing Organization Address [facility] Co de Phone Number [facility] [address] [place] [phone] * HIV-1 RNA, Quantitative, Real-Time PCR (10/26/2024 11:45 AM EDT) Pathologist [facility] HIV RNA PCR Qn Copies NOT DETECTED NOT DETECTED copies/mL [facility] HIV RNA PCR Qn Log Copies NOT DETECTED NOT DETECTED [facility] Comment:Result Units: Log co pies/mLThis test was performed using Real-Time Polymerase ChainReaction.Reportable Range: 20 copies/mL to 10,000,000 copies/mL(1.30 log copies/mL to 7.00 log copies/mL).THIS TEST WAS PERFORMED AT:[facility] [place] [id number] GROVER MD 10/26/2024 11:4 5 AM EDT 10/26/2024 1:27 PM EDT Kenya Leon MD LAB BLOOD ORDERABLES Final R esult Performing Organization Address [facility] Co de Phone Number [facility] [address] [place] [phone] * Hepatitis C Viral RNA, Genotype, LiPA (10/26/2024 11:45 AM EDT) Pathologist [facility] Hepatitis C Genotype Not Detected Not Detected [facility] Comment:Unable to obtain a g enotype due to low or no viralload, mutations in viral genome at assay priming sites,or presence of inhibitory substance. Viral load of>=2000 IU/mL is required for testing.The methods used in this test are RT-PCR and DNASequencing of the 5' UTR and core region of the HCVgenome.For additional information, please refer tohttp://education.[employer]/faq/HCVGenotyping(This link is being provided for informational/educational purposes only.)This test was developed and its analytical performancecharacteristics have been determined by [employer]. It has not been cleared or approved bythe FDA. The assay has been validated pursuant to theIA regulations and is used for clinical purposes.THIS TEST WAS PERFORMED AT:[employer] [id number] [place] [id number] WILLAMS MD,PHD 10/26/2024 11:4 5 AM EDT 10/26/2024 1:27 PM EDT Kenya Leon MD LAB BLOOD ORDERABLES Final R esult [facility] [address] [place] [phone] * Prothrombin Time-INR (10/26/2024 11:45 AM EDT) Pathologist [facility] Prothrombin Time 12.3 10.9 - 12.4 SEC [facility] INTERNATIONAL NORM RATIO 1.1 0.9 - 1.1 [facility] Comment:INTERNATIONAL NORMAL IZED RATIO (INR) REFERENCE RANGES Reference RangeFor patients not on anticoagulant therapy: 0.9 - 1.1INR ranges for oral anticoagulanttherapy:For prevention and treatment of venous thrombosis and pulmonary embolism: 2.0 - 3.0For acute myocardial infarction with aspirin therapy: 2.0 - 3.0For acute myocardial infarction without aspirin therapy: 3.0 - 4.0For patients with mechanical prosthetic heart valves: 2.5 - 3.5 10/26/2024 11:4 5 AM EDT 10/26/2024 1:34 PM EDT Kenya Leon MD LAB BLOOD ORDERABLES Final R esult [facility] [address] [place] [phone] * (ABNORMAL) Comprehensive Metabolic Panel (10/26/2024 11:45 AM EDT) Sodium 140 135 - 145 mmol/L [facility] Potassium 4.3 3.3 - 5.1 mmol/L [facility] Chloride 107 96 - 108 mmol/L [facility] Carbon Dioxide 27 22 - 29 mmol/L [facility] Anion Gap 10(L) 12 - 20 [facility] Urea Nitrogen (BUN) 18(H) 9 - 16 mg/dL [facility] Creatinine, Serum 0.84 0.5 - 1.4 mg/dL [facility] Estimated Glomerular Filt Rate >60 [facility] Comment:Chronic Kidney Disea se: Estimated GFR < 60 mL/min/1.06f1Wsjrks Kidney Disease: Estimated GFR < 15 mL/min/1.73m2 Glucose 96 60 - 115 mg/dL [facility] Calcium 9.6 8.4 - 10.2 mg/dL [facility] Bilirubin, Total 0.5 0.0 - 1.0 mg/dL [facility] Aspartate Amino Transferase 24 5 - 37 U/L [facility] Alanine Aminotransferase 31 0 - 40 U/L [facility] Total Protein 7.6 6.5 - 8.0 g/dL [facility] Albumin Level 4.7 3.5 - 5.0 g/dL [facility] Alkaline Phosphatase 74 39 - 117 U/L [facility] 10/26/2024 11:4 5 AM EDT 10/26/2024 1:41 PM EDT Kenya Leon MD LAB BLOOD ORDERABLES Final R esult [facility] [address] [place] [phone] * T-SPOT??.TB (10/17/2024 9:54 AM EDT) [facility] T Spot TB Negative Negative [facility] Comment:A negative test resu lt [...] as aquantitative test. TS PANEL A 0 [facility] TS PANEL B 0 [facility] Negative Control Passed [facility] Positive Control Passed [facility] Comment:For additional infor mation, please refer tohttp://education.[employer]/faq/WPY065(This link is being provided for informational/educational purposes only.)THIS TEST WAS PERFORMED AT:[id number] [place] [id number] WILLAMS MD,PHD 10/17/2024 9:54 AM EDT 10/17/2024 12:01 PM EDT us Cash Guillen MD LAB BLOOD ORDERABLES Final Resul t Performing Organization Address [facility] de Phone Number [facility] [address] [place] [phone] * (ABNORMAL) Hepatitis C Viral RNA, Quantitative, Real-Time PCR (10/17/2024 9:54 AM EDT) Hepatitis C Viral Load 288(A) NOT DETECTED IU/mL [facility] HCV Log PCR 2.46(A) NOT DETECTED Log IU/mL [facility] Comment:For additional infor husam, please refer tohttp://education.[employer]/faq/HVA32f2(This link is being provided for informational/educational purposes only.)THIS TEST WAS PERFORMED AT:[facility] [place] [id number] GROVER MD 10/17/2024 9:54 AM EDT 10/18/2024 10:44 AM EDT Result Tiff Guillen MD LAB BLOOD ORDERABLES Final Resul t Performing Organization Address [facility] de Phone Number [facility] [address] [place] [phone] * (ABNORMAL) Hepatitis C Antibody with Reflex to HCV, RNA, Quantitative, Real- Time PCR (10/17/2024 9:54 AM EDT) Hepatitis C Antibody Reactive( A) Nonreactive [facility] Comment:Presumptive evidence of antibodies to HCV. Blood Venous blood specimen / Unknown 10/17/2024 9:54 AM EDT 10/17/2024 12:26 PM EDT Result Tiff Guillen MD LAB BLOOD ORDERABLES Final Resul t Performing Organization Address [facility] Co de Phone Number [facility] [address] [place] [phone] * Hepatitis B surface antigen, EIA (10/17/2024 9:54 AM EDT) Hepatitis B Surface Ag Negative Negative [facility] Blood Venous blood specimen / Unknown 10/17/2024 9:54 AM EDT 10/17/2024 12:26 PM EDT us Cash Guillen MD LAB BLOOD ORDERABLES Final Resul t Performing Organization Address City/[facility]/ZIP Co de Phone Number [facility] [address] [place] [phone] * Hepatitis B Core Antibody, Total (10/17/2024 9:54 AM EDT) Hepatitis B Core Antibody Nonreactive Nonreactive [facility] Blood Venous blood specimen / Unknown 10/17/2024 9:54 AM EDT 10/17/2024 12:26 PM EDT us Cash Guillen MD LAB BLOOD ORDERABLES Final Resul t Performing Organization Address [facility] de Phone Number [facility] [address] [place] [phone] * RPR (Monitor) with Reflex to??Titer (10/17/2024 9:54 AM EDT) RPR (Monitor) w/Refl Titer NON-REACTI VE NON-REACT DANTE [facility] Comment:THIS TEST WAS PERFOR MED AT:[employer] [address] [id number] GROVER MD Rapid Plasma Reagin Ab Titer TNP [facility] Blood Venous blood specimen / Unknown 10/17/2024 9:54 AM EDT 10/17/2024 11:57 AM EDT us Cash Guillen MD LAB BLOOD ORDERABLES Final Resul t Performing Organization Address City/[facility]/ZIP Co de Phone Number [facility] [address] [place] [phone] * HIV-1/2 Antigen and Antibodies, Fourth Generation, with Reflexes (10/17/2024 9:54 AM EDT) HIV AB/AG Nonreactive Nonreactive [facility] Comment:HIV-1 p24 Ag and/or HIV-1/HIV-2 Ab not detected.A test result that is nonreactive does not exclude thepossibility of exposure to or infection with HIV-1 and/orHIV-2. Nonreactive results in this assay for individualswith prior exposure to HIV-1 and/or HIV-2 may be due toantigen and antibody levels that are below the limit ofdetection of this assay.The Peek[employer] HIV Ag/Ab Combo assay result andsupplemental assay results should be interpreted inconjunction with the patient's clinical presentation,history and other laboratory results. If the results areinconsistent with clinical evidence, additional testing issuggested to confirm the result. Blood Venous blood specimen / Unknown 10/17/2024 9:54 AM EDT 10/17/2024 12:26 PM EDT us Cash Guillen MD LAB BLOOD ORDERABLES Final Resul t Performing Organization Address [facility] Co de Phone Number [facility] [address] [place] [phone] * Hepatitis B Surface Antibody, Qualitative (10/17/2024 9:54 AM EDT) ~Hepatitis B Surface Antibody NONREACTIVE Nonreactive [facility] Comment:Nonreactive: < 8.00 mIU/mL Blood Venous blood specimen / Unknown 10/17/2024 9:54 AM EDT 10/17/2024 12:26 PM EDT us Cash Guillen MD LAB BLOOD ORDERABLES Final Resul t Performing Organization Address [facility] Co de Phone Number [facility] [address] [place] [phone] * (ABNORMAL) Hepatic Function Panel (10/17/2024 9:54 AM EDT) Bilirubin, Total 0.3 0.0 - 1.0 mg/dL [facility] Bilirubin, Direct 0.1 0.0 - 0.5 mg/dL [facility] Aspartate Amino Transferase 34 5 - 37 U/L [facility] Alanine Aminotransferase 89(H) 0 - 40 U/L [facility] Total Protein 7.8 6.5 - 8.0 g/dL [facility] Albumin Level 4.4 3.5 - 5.0 g/dL [facility] Alkaline Phosphatase 78 39 - 117 U/L [facility] Blood Venous blood specimen / Unknown 10/17/2024 9:54 AM EDT 10/17/2024 12:26 PM EDT us Cash Guillen MD LAB BLOOD ORDERABLES Final Resul t [facility] [address] [place] [phone] from Last 3 Months Insurance [employer] [facility] F[facility]
== END 2024-12-10 11:27 | disposition home or self-care (01) ==
LOC: HO.HHCX 11:26
PROVIDERS: Visit Provider Emergency Medicine
DX: R05.2 Subacute cough (principal)
CPT/HCPCS: 71046

== ENCOUNTER → 2024-12-10 11:26 | Outpatient (BNV) | payer MEDICAID, SELFPAY | PROVIDERS: Visit Provider Radiology Diagnostic Radiology | DX: R05.9 Cough, unspecified (principal) | CPT/HCPCS: 71046 ==